=== PATIENT | female | born 1965 | race Hispanic/Latino ===

== ENCOUNTER → 2018-03-22 10:38 | Outpatient (CLI) | payer MEDICAID, SELFPAY ==
--- NOTE | 2018-03-22 10:43 | BI_ITS ---
MAMMOGRAPHY - BILATERAL SCREENING REASON FOR EXAM: Female, 52 years old. Routine annual screening examination. PERTINENT HISTORY: Non-contributory. TECHNIQUE: Digital bilateral breast james (3D mammographic acquisition) in the CC and MLO projections. 2-D mediolateral oblique (MLO) and craniocaudad (CC) views of both breasts were obtained. CAD: Full Field Digital Mammography with Computer Added Detection was performed. COMPARISON: Comparison is made with prior study dated September 16, 2016. FINDINGS: Breast Composition: The breasts are heterogeneously dense, which may obscure small masses. There are no dominant masses or suspicious calcifications. Stable calcification in the superior retroareolar region of the right breast. No other significant abnormalities are identified. There has been no significant change since the prior study. BI/SCREENING MAMM (CAD), BILAT IMPRESSION: Stable bilateral screening mammogram. Yearly follow-up mammogram recommended. (A) ASSESSMENT CATEGORY: BIRADS Category 2: Benign. A letter regarding these results will be sent to the patient by the facility within 30 days. Approximately 10% of breast cancers are not detected by mammography. A normal mammogram should not delay biopsy of a clinically suspicious abnormality. [id number] Electronically Signed: Tony Wray MD at 13:15 EST Tel [phone], Service support ,
== END ==
PROVIDERS: PCP Nurse Practitioner Family
DX: Z12.31 Encounter for screening mammogram for malignant neoplasm of breast (principal)
CPT/HCPCS: 77063; 77067

== ENCOUNTER → 2020-10-29 09:02 | Outpatient (CLI) | payer MEDICAID, SELFPAY ==
--- NOTE | 2020-10-29 | IMM_PTH ---
PATIENT: MALIKA SANTANA LOC: [facility]#:[id number] AGE/SX: 59/F ROOM: RE10/29/[address]: Dr. Raza Glaser MD : 1965 BED: DIS: SPEC #: [id number] RECD: 10/30/20 12:50 STATUS: TARIK REQ #: [id number] JUAN: 10/29/20 00:[address]: Raza Glaser DEPT: IMMUNOHISTOCHEMISTRY RECD BY: Jen Perez Tissues: PARACENTESIS FLUID Procedures: RCC (add) NAPSIN A (add) CA-125 (add) Ziggy Ret (add) CEA (add) CK20 (add) CK5-6 (add) CK7 (add) CK8 (add) DERAS-2 (add) HEP PAR (add) HER2 DC (add) MACRO (add) MAMM (add) NV (add) TTF1 (add) Vimentin (add) Pankeratin (add) GATA3 (add) P40 (add) CDX2 (add) ER (initial) PHYSICIAN & [address] [address] SPECIMEN INFORMATION: Tissue Source: Left paracentesis Clinical Info: Ascites Specimen Number: [id number] CPT code: 85693, 09767 x21 METHODOLOGY: Deparaffinized sections of prefer/formalin-fixed tissue or PAP/DQ stained slides are incubated with monoclonal/polyclonal antibodies/oligonucleotide probes. Localization is made via biotin free immunoperoxidase method. Appropriate controls are performed and reacted as expected. Results on target cell population are indicated in the following table: RESULTS: ANTIBODY / CLONE RESULT ER (6F11) negative NV (1E2) negative Her-2neu (CB11) negative Mammaglobin (31A5) negative GATA3 (L50-823) negative AE1-3 (AE1/AE3/PCK26) positive CK7 (OV-TL12/30) positive CK8 (85dbdyM09) positive CK20 (KS20.8) negative DERAS-2 (SP21) positive CDX2 (BJT5128F) negative Vimentin (V9) negative Macro (HAM-56) negative TTF-1 (8G7G3/1) negative Napsin A (Rabbit Polyclonal) negative HepPar (OCh1E5) negative RCC (PN-15) negative CALRET (polyclonal) negative CK5-6 (D5 & 1684) negative P40 (BC28) negative CEA (11-7/TF-3HB-1) negative CA125 (OC125) positive These tests were developed and their performance characteristics determined by [facility]. They may not have been cleared or approved by the U.S. Food and Drug Administration. The FDA has determined that such clearance or approval is not necessary. The above immunohistochemical/dualISH markers are ordered and reviewed by the Pathologist. INTERPRETATION: Left paracentesis: Malignant cells present derived from non-small cell carcinoma, favor adenocarcinoma. See comment. SJ:ori 10/31/2020 Comment: IHC profile favors ovarian primary. Clinical correlation is necessary. Case has been reviewed in consultation with Dr. Orourke who concurs with the above diagnosis. IDC:AM
--- NOTE | 2020-10-29 | FLU_PTH ---
PATIENT: MALIKA SANTANA LOC: [facility]#:[id number] AGE/SX: 59/F ROOM: RE10/29/[address]: Dr. Raza Glaser MD : 1965 BED: DIS: SPEC #: [id number] RECD: 10/29/20 10:29 STATUS: TARIK DUNN #: [id number] JUAN: 10/29/20 00:[address]: Raza Glaser DEPT: CYTOLOGY RECD BY: Omaira Holland Tissues: PARACENTESIS FLUID Procedures: Special Stain Group II Mucicarmine Stain (control) Surgery Specimen Level IV Cytospin Fluid HEADER OPERATION: Ultrasound-guided left paracentesis PRE-OP DIAGNOSIS: Ascites TISSUE SUBMITTED: Left paracentesis fluid for cytology DIAGNOSIS CYTOLOGY Left paracentesis fluid for cytology (cytospin and cell block): Malignant cells present derived from non-small cell carcinoma, favors adenocarcinoma. See comment. OLESYA:ori 10/30/2020 COMMENT Immunohistochemistry ([id number]) supports the above diagnosis. IHC profile favors ovarian primary. Mucin stain with matched control is used in the evaluation of the specimen and the tumor cells are negative for mucin. Clinical correlation and appropriate follow up are necessary. Results are reported to Dr. Glaser?s office on 10/31/20. Case has been reviewed in consultation with Dr. Orourke who concurs with the above diagnosis. IDC:AM CYTOLOGY STUDY Slides are reviewed. CYTOLOGY GROSS Received is 90 ml of yellow cloudy fluid labeled with the patient's name and and designated per the requisition as paracentesis. Submitted for cytology preparation including cell block. / ori 10/29/2020 TC:0 CPT: 95790, 17733, 97850
--- NOTE | 2020-10-29 09:05 | US_ITS ---
PROCEDURE: Ultrasound guided paracentesis. DATE OF EXAMINATION: 10/29/2020.. INDICATION: Female, 55 years old. Ascites. PHYSICIAN: Tony Wray M.D. TECHNIQUE: The risks, benefits, and alternatives to the procedure were explained to the patient. The specific risks of bleeding, infection, and damage to bowel were detailed and accepted. Witnessed informed consent was obtained. The abdomen was ultrasonographically surveyed. An appropriate pocket of fluid was identified at the right lower quadrant. The skin were cleaned and prepped in the usual sterile fashion. Using ultrasound guidance, the peritoneal cavity was accessed with a 5-Urdu paracentesis needle/catheter system. The trocar was removed. A total of 5900 ml of josh-colored fluid were removed from the peritoneal cavity. The catheter was removed and a sterile dressing was applied. A 100 mL sample of fluid was sent to the laboratory for testing. The procedure was well tolerated. US/Paracentesis with US IMPRESSION: Ultrasound guided paracentesis. Electronically Signed: Tony Wray MD at 10:47 EDT , Service support ,
[2020-10-29 09:11] VITALS: BMI 18.8
[2020-10-29 10:00] VITALS: BP 106/55; BP 110/82; BP 113/72; PULSE 100; PULSE 107; PULSE 98; RESP 16; TEMP 36.6; O2SAT 97; O2SAT 99
== END | disposition home or self-care (01) ==
PROVIDERS: PCP Family Medicine; Referring Provider Family Medicine; Visit Provider Family Medicine
DX: R18.0 Malignant ascites (principal); C76.3 Malignant neoplasm of pelvis
CPT/HCPCS: 49083; 88108; 88305; 88313; 88341; 88342

== ENCOUNTER → 2020-11-12 12:08 | Outpatient (CLI) | payer MEDICAID, SELFPAY ==
[2020-10-29 09:11] VITALS: BMI 18.8
--- NOTE | 2020-11-12 12:10 | US_ITS ---
PROCEDURE: ULTRASOUND GUIDED PARACENTESIS CLINICAL HISTORY: Female, 55 years old. ASCITES CONSENT: Time-Out Called: Yes. Consent form signed: Yes. PT-PTT Levels Checked: Yes. SEDATION: Local injection of 3 cc of 1% LIDOCAINE TECHNIQUE: Procedure explained to the patient. FINDINGS: FLUID PRE-PROCEDURE There is posterior enhancement. The findings appear anechoic. There is no loculation. A large amount of fluid is noted in the abdominal cavity. FLUID POST-PROCEDURE Amount of fluid drained: 4150 ml. Residual image volume: 1000 ml. US/Paracentesis with US IMPRESSION: 4150 cc of clear yellow fluid was aspirated during this therapeutic paracentesis. Electronically Signed: Triston Hardwick DO at 15:21 EDT Tel , Service support ,
[2020-11-12 12:31] VITALS: BP 107/65; BP 107/68; BP 115/80; PULSE 92; PULSE 94; RESP 20; RESP 22; O2SAT 96; O2SAT 97
--- NOTE | 2020-11-21 20:09 | CASEMGMT ---
RN Care Coordination Assessment: ? The following information was gathered via medical record review of [facility] medical records and records received from Dr Glaser's office (PCP), Dr Sotelo (oncology), and Dr Luz Ashby (genecology). Pt is a 55 yr-old female.? Preferred language is Amharic.? Limited Faroese-speaking.? No history of? ETOH or drug use and no history of smoking.?? 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 DM, Type 2, GERD, dyslipidemia.? U/S Guided Paracentesis:? Managed/Ordered by: Dr Glaser.? Current order is for Paracentesis every 1-2 weeks.?? 1st Paracentesis done 10/29/2020 w/5,900 ml removed.?? 2nd?Paracentesis:??11/12/2020 w/4,150 ml removed: Providers: Dr Raza Glaser, PCP.? Per Dr Glaser office visit note 11/12/20, pt declining chemo and he recommended Palliative Care for pain/symptom management.??Pt to return for f/u in [address] Sotelo-oncology. Pt last met w/Dr Sotelo 09/17/20. Treatment options, risks/benefits discussed. Pt did not return for f/u appts. Dr Ramírez--Gynecology @ [facility] and Dr Luz Ashby (genecology) ? Insurance:? [employer] Prescription Benefit:? Yes Medications:?? Prednisone 20 mg, Glucophage 500 mg, Atorvastatin 10 mg, Senna-S, Miralax, and Devol. Pt was taking Gabapentin for pain, but after getting paracentesis, the symptoms improved and pt stopped taking it.? Allergies: NKA -RN JASON to meet w/patient and family, if available, when pt comes in for next paracentesis to?assist with any care coordination needs.?? ? DGiauque?BSN BONNIE GOMEZ
== END | disposition home or self-care (01) ==
PROVIDERS: PCP Family Medicine; Referring Provider Family Medicine; Visit Provider Family Medicine
DX: R18.0 Malignant ascites (principal)
CPT/HCPCS: 49083

== ENCOUNTER → 2020-11-26 12:19 | Outpatient (CLI) | payer MEDICAID, SELFPAY ==
[2020-10-29 09:11] VITALS: BMI 18.8
--- NOTE | 2020-11-26 12:21 | US_ITS ---
PROCEDURE: Ultrasound guided paracentesis. DATE OF EXAMINATION: 11/26/2020. INDICATION: Female, 55 years old. Ascites. PHYSICIAN: Tony Wray M.D. TECHNIQUE: The risks, benefits, and alternatives to the procedure were explained to the patient. The specific risks of bleeding, infection, and damage to bowel were detailed and accepted. Witnessed informed consent was obtained. The abdomen was ultrasonographically surveyed. An appropriate pocket of fluid was identified at the right lower quadrant. The skin were cleaned and prepped in the usual sterile fashion. Using ultrasound guidance, the peritoneal cavity was accessed with a 5-Moldovan paracentesis needle/catheter system. The trocar was removed. A total of 4800 ml of josh-colored fluid were removed from the peritoneal cavity. The catheter was removed and a sterile dressing was applied. The procedure was well tolerated. US/Paracentesis with US IMPRESSION: Ultrasound guided paracentesis. Electronically Signed: Tony Wray MD at 13:42 EDT , Service support ,
[2020-11-26 12:52] VITALS: BP 108/69; BP 108/72; BP 113/78; BP 115/77; PULSE 101; PULSE 104; PULSE 109; RESP 18; TEMP 36.6; O2SAT 96; O2SAT 97
[2020-11-26] MEDS: Lidocaine 1% (5 ml sdv) 5 ML Vial INFILT (13:00)
== END ==
PROVIDERS: PCP Family Medicine; Referring Provider Family Medicine; Visit Provider Family Medicine
DX: C76.3 Malignant neoplasm of pelvis (principal); R18.0 Malignant ascites
CPT/HCPCS: 49083

== ENCOUNTER → 2020-12-06 13:30 | Outpatient (CLI) | payer MEDICAID, SELFPAY ==
--- NOTE | 2020-12-06 13:31 | US_ITS ---
STUDY: ABDOMINAL ULTRASOUND - ascites survey. REASON FOR VISIT: Female, 55 years old ASCITES,CIRRHOSIS TECHNIQUE: Ultrasound evaluation of the 4 quadrants was performed with real-time and static cunningham-scale imaging. TECHNICAL QUALITY: Adequate. COMPARISON: None. FINDINGS: The 4 quadrants was assessed for ascites. A small pocket of free fluid is seen in the right lower quadrant. Not enough fluid for paracentesis. US/Abdomen Limited IMPRESSION: Small pocket of ascites seen in the right lower quadrant. Not enough for safe paracentesis. Electronically Signed: Tony Wray MD at 15:01 EDT , Service support ,
== END ==
PROVIDERS: PCP Family Medicine; Referring Provider Family Medicine; Visit Provider Family Medicine
DX: R18.0 Malignant ascites (principal); C76.3 Malignant neoplasm of pelvis
CPT/HCPCS: 76705

== ENCOUNTER 2020-12-11 15:07 | Inpatient (IN) | payer MEDICAID, SELFPAY ==
[2020-12-11] VITALS (7 sets, daily range): BP systolic 98–139; BP diastolic 62–77; PULSE 68–108; RESP 16–20; TEMP 36.4–36.7; O2SAT 90–98; BMI 17.4; BMI 18.2
--- NOTE | 2020-12-11 15:41 | CT_ITS ---
STUDY: CTA CHEST REASON FOR EXAM: Female, 55 years old. SOB, hx of DVT RADIATION DOSAGE (If Supplied By Facility): CTDIvol = ( 3.32 ) mGy, DLP = ( 107.20 ) mGycm TECHNIQUE: The examination was performed with the intravenous administration of IV 75mL Isovue-370. Post-processing of the angiographic images was performed, with multiplanar reformation and 3D reconstruction. Individualized dose optimization techniques were used for this CT. COMPARISON: None. FINDINGS: A markedly decrease in subcutaneous fat suggestive of cachexia. Edema of subcutaneous fat suggestive of anasarca. Normal enhancement of the main pulmonary artery and right and left pulmonary arteries. Normal enhancement of the bilateral peripheral pulmonary arteries. There is a filling defect within the right descending pulmonary artery consistent with pulmonary embolism. Normal thoracic aorta and visualized great vessels. There is no demonstrated aortic dissection. Normal heart and pericardium. Normal mediastinum. Normal hilar regions. Normal visualized trachea and bronchi. The lungs are well expanded. Normal pulmonary parenchyma. Very large bilateral pleural effusions with bibasilar atelectasis. Normal chest wall structures. Normal osseous structures. Moderate amount of ascites. CT/CTA Chest W/WO Contrast IMPRESSION: 1. Positive for pulmonary embolism within the right ascending pulmonary artery. 2. Very large bilateral pleural effusions with bibasilar atelectasis. 3. Anasarca. 4. Cachexia. Electronically Signed: Jayy Escobar MD at 17:03 EDT Tel , Service support ,
[2020-12-11 16:00] LABS: Absolute Lymphocyte Count 0.84 X10^3/uL (0.83-4.51); Absolute Neutrophil Count 7.3 X10^3/uL (2.0-7.7); Basophil# 0.05 X10^3/uL; Basophil% 0.6 % (0-1); Eosinophil# 0.04 X10^3/uL; Eosinophils% 0.5 % (0-5); Hematocrit 40.8 % (37-47); Hemoglobin 12.9 g/dL (12.0-15.0); Lymphocyte # 0.84 X10^3/ul (0.83-4.51); Lymphocyte % 9.7 % (19-41); Mean Corp Hgb Conc 31.6 g/dL (32-36); Mean Corpuscular Hgb 28.2 pg (27.0-32.0); Mean Corpuscular Volume 89.1 fL (81-99); Mean Platelet Vol. 9.6 fl (6.2-12.0); Monocyte# 0.38 X10^3/uL; Monocyte% 4.4 % (0-10); NRBC Flagged by Analyzer 0 % (0-5); Neutrophil # 7.27 X10^3/uL (2.7-7.7); Platelet Count 481 K/mm3 (150-450); RBC Distribution Width CV 17.8 % (11.6-14.6); RBC Distribution Width SD 56.9 fl (35.1-43.9); Red Blood Count 4.58 M/mm3 (4.2-5.4); White Blood Count 8.7 K/mm3 (4.4-11.0)
--- NOTE | 2020-12-11 16:05 | ED.VIS.DYS ---
HPI History of Present Illness Chief Complaint: Shortness of Breath Informant: patient and spouse/S.O. Narrative Narrative: Patient is a 55-year-old female with a past medical history of uterine cancer who presents to the emergency department for shortness of breath. Patient is Marshallese-speaking and the does the translating. She was diagnosed with stage IV uterine cancer that was an operable in July. She does have chronic abdominal ascites requiring drainage from the cancer. They have elected not to undergo any chemotherapy. She does have chronic abdominal swelling and pain that is at baseline. She denies any chest pain. For the past 3 or 4 nights she has developed shortness of breath when lying flat. She feels a gurgling sensation in her throat. She was recently diagnosed with a DVT in her left lower extremity and started on Eliquis. She has had swelling of the left lower extremity without any significant pain. She is also swelling of her left upper extremity with a negative ultrasound of that arm. At this time she is relatively asymptomatic with the shortness of breath. No associated chest pain. She has occasionally coughed and brought up a clear bubbly sputum. [facility] Medical History (Updated 12/11/20 @ 17:[address] Drew Navas DO) Cervical cancer Home Medications apixaban [Eliquis DVT-PE Treat 30D Start] 10 mg PO BID 12/11/20 [History Last Taken 12/11/20] hydrocodone-acetaminophen 1 tab PO Q8H PRN PRN 12/11/20 [History Last Taken 12/11/20] nystatin 5 ml PO 4X/DAY 12/11/20 [History Last Taken 12/11/20] sennosides-docusate sodium [P-COL RITE] 2 tab PO DAILY 12/11/20 [History Last Taken 12/11/20] Allergy/AdvReac Type Severity Reaction Status Date / Time No Known Allergies Allergy Verified 12/11/20 15:08 Social History Smoking Status: Never smoker ROS ROS ED Constitutional Constitutional ED: Denies chills or fever(s) Eyes Eyes: Denies change in vision ENT ENT ED: Denies epistaxis or rhinorrhea Cardiovascular Cardiovascular: Denies chest pain or palpitations Respiratory/Chest Respiratory/Chest: Reports cough, dyspnea and sputum Gastrointestinal Gastrointestinal: Reports abdominal pain; Denies diarrhea, nausea or vomiting Genitourinary Genitourinary ED: Denies dysuria, hematuria or urinary frequency Musculoskeletal Musculoskeletal: Denies back pain or neck pain Integumentary Denies rash Neurologic Neurologic: Denies dizziness, headache(s) or weakness EXAM Physical Exam Const Vital Signs: 12/11/20 15:09 12/11/20 15:12 12/11/20 16:02 Temperature 97.8 F 97.8 F Temperature Source Temporal Temporal Pulse Rate 107 H 107 H Respiratory Rate 16 16 Respiratory Effort Short of Breath Respiratory Depth Normal Respiratory Pattern Normal Blood Pressure 103/76 103/76 Blood Pressure Mean 85 85 Pulse Ox 97 97 Oxygen Delivery Method Room Air Room Air 12/11/20 17:18 Temperature Temperature Source Pulse Rate 68 Respiratory Rate 17 Respiratory Effort Respiratory Depth Respiratory Pattern Blood Pressure 139/77 H Blood Pressure Mean 97 Pulse Ox 98 Oxygen Delivery Method Room Air Positive well nourished and well developed General Appearance ED: well developed and NAD HEENT Reports normocephalic, head/scalp atraumatic and moist mucous membranes Eyes PERRL and EOMs intact bilaterally Neck supple Chest Wall inspection of chest normal Resp normal respiratory effort and clear to auscultation bilaterally Auscultation: Negative for rales, rhonchi or wheezes Cardio regular rhythm and no murmurs Rate: tachycardic GI GI Narrative: Abdominal distention with ascites. Diffuse abdominal discomfort with palpation. No rebound or guarding. Normal active bowel sounds. Back/Spine no CVA tenderness Extremity Extremity Narrative: Mild swelling to left arm and left leg. No significant tenderness. Neuro Sensorium / Orientation: alert Motor Exam: strength 5/5 throughout Psych mental status grossly normal Skin no rashes or lesions noted MDM MDM MDM Narrative Medical decision making narrative: Patient presents to the ED for shortness of breath when lying flat at nighttime over the past few days. They were concerned because she was recently diagnosed with a DVT. On arrival to the ED she is satting 97% on room air. She is mildly tachycardic with a pulse of 107. She otherwise has benign physical exam except for abdominal ascites. Will check basic lab work and CT scan of the chest. Patient's lab work-up did not reveal significant acute abnormality. Her troponin and BNP are not high. Her CT scan unfortunately did show a pulmonary embolism. There is also large bilateral pleural effusions with pulmonary atelectasis. Given that she is symptomatic, tachycardic will bring her into the hospital for potential thoracentesis. She will likely need palliative care consult. All these findings were discussed with the patient and the family. Lab Data Labs: Laboratory Results - last 24 hr 12/11/20 12/11/20 12/11/20 15:55 15:55 15:55 WBC 8.7 RBC 4.58 Hgb 12.9 Hct 40.8 MCV 89.1 MCH 28.2 MCHC 31.6 L RDW Std Deviation 56.9 H RDW Coeff of Brittani 17.8 H Plt Count 481 H MPV 9.6 Immature Gran % (Auto) 0.800 Neut % (Auto) 84.0 H Lymph % (Auto) 9.7 L Hardeman % (Auto) 4.4 Eos % (Auto) 0.5 Baso % (Auto) 0.6 Absolute Neuts (auto) 7.3 Absolute Lymphs (auto) 0.84 Nucleated RBC % 0 Sodium 136 Potassium 3.6 Chloride 103 Carbon Dioxide 26.0 Anion Gap 7 BUN 27 H Creatinine 0.52 L Estim Creat Clear Calc 75.28 Est GFR (MDRD) Af Amer 156 Est GFR (MDRD) Non-Af 129 BUN/Creatinine Ratio 51.5 H Glucose 131 H Calcium 8.4 L Total Bilirubin 0.20 AST 32 ALT 21 Alkaline Phosphatase 135 H Troponin I High Sens 8 B-Natriuretic Peptide 22.3 Total Protein 6.3 L Albumin 1.8 L Globulin 4.5 H Albumin/Globulin Ratio 0.4 L Radiography Diagnostic Testing: Radiology Impression Chest CTA 12/11/20 15:41 IMPRESSION: 1. Positive for pulmonary embolism within the right ascending pulmonary artery. 2. Very large bilateral pleural effusions with bibasilar atelectasis. 3. Anasarca. 4. Cachexia. Electronically Signed: Jayy Escobar MD at 17:03 EDT Tel , Service support , Discharge Plan Dx/Rx/DC Orders Clinical Impression: Pulmonary embolism, Bilateral pleural effusion Disposition Disposition: Acute Care [facility]
[2020-12-11 16:15] LABS: BNP,B-Type NATRIURETIC PEPTIDE 22.3 pg/mL (0-100)
[2020-12-11 16:19] LABS: ALB/GLOB Ratio 0.4 RATIO (0.9-2.4); AST(SGOT) 32 U/L (15-37); Alanine Aminotransfer ALT/SGPT 21 U/L (13-56); Albumin, Serum 1.8 g/dL (3.2-5.0); Alkaline Phosphatase 135 U/L (45-117); Anion Gap 7 (5-15); BUN 27 mg/dL (7-18); BUN/Creat Ratio 51.5 RATIO (10-20); Calcium,Total 8.4 mg/dL (8.5-10.1); Chloride 103 mmol/L (98-107); Creatinine, Serum 0.52 mg/dL (0.55-1.02); EST Glomerular Filtration Rate 129 mL/min (>60); Est Glom Filt Rate - Afr Amer 156 mL/min (>60); Estimated Creatinine Clearance 75.28 ml/min; Globulin 4.5 g/dL (2.2-4.2); Glucose 131 mg/dL (74-106); Potassium 3.6 mmol/L (3.5-5.1); Protein, Total 6.3 g/dL (6.4-8.2); Sodium Level 136 mmol/L (136-145); Troponin-I HS 8 pg/mL (3.0-54.0)
--- NOTE | 2020-12-11 18:24 | HP.PCM_ITS ---
Documented by User: TAMMY Hampton 12/11/20 18:41 HPI - General General Date of Admission: 12/11/20 Date of Service: 12/11/20 Chief Complaint: Shortness of breath HPI Narrative MALIKA TAN, is a 55 F who presents with complaints of shortness of breath and gurgling in her lungs over the past week. Patient does not speak Guamanian fluently, at bedside translating. Patient reports that patient was started on Eliquis on 12/07/2020 for DVT in left leg. Patient's states that they did not do any x-ray or CAT scan of the chest at that time. reports patient was also diagnosed with uterine cancer with metastases, not receiving chemo or radiation. states patient is being seen by palliative care who is managing her pain. Patient denies fever, chills, chest pain, nausea, vomiting. Patient reports 7 out of 10 abdominal pain which is chronic for patient secondary to uterine cancer. [facility] Medical History (Updated 12/11/20 @ 18:58 by Adelaide Varela) Cervical cancer DVT (deep venous thrombosis) Home Medications apixaban [Eliquis DVT-PE Treat 30D Start] 10 mg PO BID 12/11/20 [History Last Taken 12/11/20] hydrocodone-acetaminophen 1 tab PO Q8H PRN PRN 12/11/20 [History Last Taken 12/11/20] nystatin 5 ml PO 4X/DAY 12/11/20 [History Last Taken 12/11/20] sennosides-docusate sodium [P-COL RITE] 2 tab PO DAILY 12/11/20 [History Last Taken 12/11/20] Allergy/AdvReac Type Severity Reaction Status Date / Time No Known Allergies Allergy Verified 12/11/20 15:08 Family History (Updated 12/11/20 @ 18:27 by TAMMY Hampton) Father Diabetes Mother Diabetes Surgical History (Updated 12/11/20 @ 18:27 by TAMMY Hampton) History of 2 sections Social History (Updated 12/11/20 @ 18:59 by Adelaide Varela) household members: significant other housing: house Smoking Status: Never smoker ROS Constitutional Constitutional: Denies anorexia, chills, fatigue, fever(s) or weakness Cardiovascular Cardiovascular: Reports edema and tachypnea; Denies chest pain Respiratory/Chest Respiratory/Chest: Reports cough, tachypnea and other Details: Inability to lie flat due to shortness of breath Gastrointestinal Gastrointestinal: Reports abdominal pain Genitourinary Genitourinary: Denies dysuria Musculoskeletal Musculoskeletal: Denies back pain, extremity pain, joint pain or joint stiffness Integumentary Integumentary: Denies dry skin Neurologic Neurologic: Denies abnormal gait, abnormal speech, confusion or dizziness Psychiatric Psychiatric: Denies anxiety or depression Endocrine Endocrinology: Denies change in body appearance Hematologic/Lymphatic Hematologic/Lymphatic: Denies easy bleeding or easy bruising Vital Signs Vital Signs Vital Signs: 12/11/20 15:09 12/11/20 15:12 12/11/20 16:02 Temperature 97.8 F 97.8 F Temperature Source Temporal Temporal Pulse Rate 107 H 107 H Respiratory Rate 16 16 Respiratory Effort Short of Breath Respiratory Depth Normal Respiratory Pattern Normal Blood Pressure 103/76 103/76 Blood Pressure Mean 85 85 Pulse Ox 97 97 Oxygen Delivery Method Room Air Room Air Oxygen Flow Rate (L/min) 12/11/20 17:18 12/11/20 18:23 Temperature 98.1 F Temperature Source Temporal Pulse Rate 68 99 Respiratory Rate 17 20 H Respiratory Effort Respiratory Depth Respiratory Pattern Blood Pressure 139/77 H 112/67 Blood Pressure Mean 97 82 Pulse Ox 98 93 Oxygen Delivery Method Room Air Nasal Cannula Oxygen Flow Rate (L/min) 3 Weight Weight: 86 lb Body Mass Index (BMI) 17.4 Physical Exam Const alert, oriented x3 and no apparent distress General Appearance: cooperative HEENT normocephalic and head/scalp atraumatic Eyes conjunctivae normal and no scleral icterus Neck supple and no JVD General: trachea midline Resp normal respiratory effort Effort and Inspection: tachypneic Auscultation: rhonchi throughout Cardio regular rate, regular rhythm, S1 normal heart sound, S2 normal heart sound and peripheral pulses 2+ throughout GI normal to inspection, nondistended, normoactive bowel sounds, soft to palpation and non-tender Extremity normal capillary refill and no clubbing, cyanosis or edema General Extremity: no tenderness to palpation of joints or extremities Skin General Skin Exam: no breakdown and turgor normal Lesions: no lesions Rashes: no rashes Neuro no focal motor deficits and no sensory deficits noted Speech: speech normal Motor Exam: Negative for general weakness Psych thought process normal, cooperative and affect normal Appearance: appropriate Results Lab / Micro Data Result Diagrams: 12/12/20 02:00 12/12/20 02:00 Labs: Laboratory Results - last 24 hr 12/11/20 15:55: WBC 8.7, RBC 4.58, Hgb 12.9, Hct 40.8, MCV 89.1, MCH 28.2, MCHC 31.6 L, RDW Std Deviation 56.9 H, RDW Coeff of Brittani 17.8 H, Plt Count 481 H, MPV 9.6, Immature Gran % (Auto) 0.800, Neut % (Auto) 84.0 H, Lymph % (Auto) 9.7 L, Boone % (Auto) 4.4, Eos % (Auto) 0.5, Baso % (Auto) 0.6, Absolute Neuts (auto) 7.3, Absolute Lymphs (auto) 0.84, Nucleated RBC % 0 12/11/20 15:55: Sodium 136, Potassium 3.6, Chloride 103, Carbon Dioxide 26.0, Anion Gap 7, BUN 27 H, Creatinine 0.52 L, Estim Creat Clear Calc 75.28, Est GFR (MDRD) Af Amer 156, Est GFR (MDRD) Non-Af 129, BUN/Creatinine Ratio 51.5 H, Glucose 131 H, Calcium 8.4 L, Total Bilirubin 0.20, AST 32, ALT 21, Alkaline Phosphatase 135 H, Troponin I High Sens 8, Total Protein 6.3 L, Albumin 1.8 L, Globulin 4.5 H, Albumin/Globulin Ratio 0.4 L 12/11/20 15:55: B-Natriuretic Peptide 22.3 Radiology Impression Chest CTA 12/11/20 15:41 IMPRESSION: 1. Positive for pulmonary embolism within the right ascending pulmonary artery. 2. Very large bilateral pleural effusions with bibasilar atelectasis. 3. Anasarca. 4. Cachexia. Electronically Signed: Jayy Escobar MD at 17:03 EDT Tel , Service support , Assessment & Plan Assessment/Plan (1) Pulmonary embolism: QUALIFIERS: Acute cor pulmonale presence: unspecified Chronicity: unspecified Pulmonary embolism type: other Qualified Code(s): I26.99 - Other pulmonary embolism without acute cor pulmonale (2) Bilateral pleural effusion: PLAN: 1. Pulmonary embolism -Admit patient to PCU for cardiac monitoring -Heparin drip initiated due to anticipated thoracentesis, PTT per protocol -Consult meter maintenance person -PT and OT to eval and treat -CBC and CMP daily -Encourage incentive spirometry -Oxygen per protocol -Consult case management for discharge planning and coordination with palliative care 2. Bilateral pleural effusion -May be secondary to pulmonary embolism however patient also has active diagnosis of cervical cancer for which she is not undergoing treatment currently. -IV Lasix ordered daily -Thoracentesis with ultrasound ordered -Daily weights -Intake and output 3. DVT -Patient diagnosed on 12/07/2020 and started on Eliquis, will hold Eliquis and initiate heparin drip for pending thoracentesis for pleural effusions -Elevate left lower extremity -We will obtain records from [facility] 4. Cervical cancer -Patient currently not undergoing any chemo or radiation treatment per choice. -Will continue home Paicines regimen along with as needed Tylenol -We will obtain records from [facility] DVT prophylaxis-SCDs This patient was seen by [facility] under the supervision of Dr. Bueno. Documented by User: Dr. Adilene Bueno MD 12/12/20 07:37 HPI - General General Date of Admission: 12/11/20 [facility] Medical History (Updated 12/11/20 @ 18:58 by Adelaide Varela) Cervical cancer DVT (deep venous thrombosis) Home Medications apixaban [Eliquis DVT-PE Treat 30D Start] 10 mg PO BID 12/11/20 [History Last Taken 12/11/20] hydrocodone-acetaminophen 1 tab PO Q8H PRN PRN 12/11/20 [History Last Taken 12/11/20] nystatin 5 ml PO 4X/DAY 12/11/20 [History Last Taken 12/11/20] sennosides-docusate sodium [P-COL RITE] 2 tab PO DAILY 12/11/20 [History Last Taken 12/11/20] Allergy/AdvReac Type Severity Reaction Status Date / Time No Known Allergies Allergy Verified 12/11/20 15:08 Family History (Updated 12/11/20 @ 18:27 by TAMMY Hampton) Father Diabetes Mother Diabetes Surgical History (Updated 12/11/20 @ 18:27 by TAMMY Hampton) History of 2 sections Social History (Updated 12/11/20 @ 18:59 by Adelaide Varela) household members: significant other housing: house Smoking Status: Never smoker Results Lab / Micro Data Result Diagrams: 12/12/20 02:00 12/12/20 02:00 Charges/Coding Addendum Addendum: This patient was seen in conjunction with Mony Bills. I have independently interviewed and examined the patient and reviewed pertinent historical, laboratory, and other data. I have reviewed her note and concur with her documentation 55-year-old female with stage IV cervical CA, not on chemotherapy or any treatment, not following oncology who comes in with progressive shortness of breath. Patient was recently started on Eliquis for DVT of the left leg. Patient has progressive shortness of breath. Vitals were stable. On 2 L of oxygen. CTA of the chest showed acute PE within the right ascending pulmonary artery, very large bilateral pleural effusions, anasarca Physical Exam: Gen: Looks in some discomfort, not pale, not jaundiced, cachectic CVS:HS I +II, regular, no murmurs RESP: Diminished at lung bases, crackles GI: BS present and normal, soft, nontender, no palpable organs EXT:No edema ASSESSMENT: 1. Hypoxia secondary to acute PE/pleural effusion 2. Bilateral massive pleural effusion 3. Acute PE/recent DVT 4. Stage IV metastatic cervical CA 5. Severe protein calorie malnutrition Plan: Heparin drip [employer] Worker consult IR consult for thoracocentesis Continue pain control I discussed and explained in details the various types of CODE STATUS-full code, DNR CCA, DNR CC. Patient chose full code. Patient and her do not want hospice at this time. They are doing other alternate medicines including strict dieting and some herbs. Reportedly, it is working according to them. Time spent discussing CODE STATUS 18 minutes Visit Charges Inpatient E&M: 93162 Init Hosp L3 Procedures Hospitalists Procedures: 26235 Advncd Care Plan 30 Min
[2020-12-11 20:14] LABS: International Normalized Ratio 1.4; Prothrombin Time (Protime)PT. 16.1 SECONDS (11.7-14.9)
[2020-12-11 20:15] LABS: Partial Thromboplast Time 36.4 Seconds (24.1-36.2)
[2020-12-11] MEDS: Heparin Injection (Vial) 5,000 UNIT/ML VIAL 3500 UNIT IV (20:16)
[2020-12-11] MEDS: NYSTATIN 500,000 UNIT/5 ML UDC 500000 UNIT PO (20:16)
[2020-12-11] MEDS: HEPARIN/D5w 25,000 UNITS 25,000 UNITS/250 ML IV.SOLN. 7 UNITS IV (20:16)
[2020-12-11] MEDS: HYDROcodone Bitartrate/Apap 5/325 Tablet PO (21:53)
[2020-12-12] VITALS (16 sets, daily range): BP systolic 90–111; BP diastolic 50–67; PULSE 89–109; RESP 14–20; TEMP 36.4–37.3; O2SAT 92–100
--- NOTE | 2020-12-12 | IMM_PTH ---
PATIENT: MALIKA SANTANA LOC: [facility] U#:[id number] AGE/SX: 55/F ROOM: [facility] RE12/11/[address]: Dr. Adilene Bueno MD : 1965 BED: 1 DIS: 12/13/2020 SPEC #: [id number] RECD: 12/14/20 14:10 STATUS: TARIK REQ #: [id number] JUAN: 12/12/20 00:[address]: Adilene Bueno DEPT: IMMUNOHISTOCHEMISTRY RECD BY: Jen Perez ENTERED: 12/14/20 14:13 SP TYPE: IMMUNO OTHR DR: MD Dr. Raza Tracy MD Tissues: THORACIC FLUID Procedures: RCC (add) NAPSIN A (add) BCL-2 (add) CA-125 (add) Ziggy Ret (add) CEA (add) CK19 (add) CK20 (add) CK7 (add) CK8 (add) HORACIO (add) P53 (add) AR (add) TTF1 (add) Vimentin (add) Pankeratin (add) P40 (add) ER (initial) S-100 (add) PHYSICIAN & INSTITUTION [place] [id number] SPECIMEN INFORMATION: Tissue Source: Thoracentesis fluid Clinical Info: Pleural effusion Specimen Number: [id number] CPT code: 80857, 91248 x18 METHODOLOGY: Deparaffinized sections of prefer/formalin-fixed tissue or PAP/DQ stained slides are incubated with monoclonal/polyclonal antibodies/oligonucleotide probes. Localization is made via biotin free immunoperoxidase method. Appropriate controls are performed and reacted as expected. Results on target cell population are indicated in the following table: RESULTS: ANTIBODY / CLONE RESULT ER (6F11) negative AR (1E2) negative AE1-3 (AE1/AE3/PCK26) positive CK7 (OV-TL12/30) positive CK8 (40duhqG23) positive CK20 (KS20.8) negative BCL-2 (bcl-2/100/D5) negative Vimentin (V9) positive S-100 (4C4.9) negative CK19 (A53-B/A2.26) positive TTF-1 (8G7G3/1) negative Napsin A (Rabbit Polyclonal) negative RCC (PN-15) negative CALRET (polyclonal) negative P40 (BC28) negative HROACIO (E29) positive CEA (11-7/TF-3HB-1) negative CA125 (OC125) positive P53 (DO-7) negative These tests were developed and their performance characteristics determined by [facility]. They may not have been cleared or approved by the U.S. Food and Drug Administration. The FDA has determined that such clearance or approval is not necessary. The above immunohistochemical/dualISH markers are ordered and reviewed by the Pathologist. INTERPRETATION: Thoracentesis fluid: Metastatic adenocarcinoma Comment: A uterine primary is favored AM:ramsey 12/18/2020
--- NOTE | 2020-12-12 | FLU_PTH ---
PATIENT: MALIKA SANTANA LOC: U U#:[id number] AGE/SX: 55/F ROOM: [facility] RE12/11/[address]: Dr. Adilene Bueno MD : 1965 BED: 1 DIS: 12/13/2020 SPEC #: [id number] RECD: 12/12/20 15:08 STATUS: TARIK DUNN #: [id number] JUAN: 12/12/20 00:[address]: Adilene Bueno DEPT: CYTOLOGY RECD BY: Espinoza Patino ENTERED: 12/13/20 09:48 SP TYPE: Fluid OTHR DR: MD Dr. Raza Tracy MD Tissues: THORACIC FLUID Procedures: Special Stain Group II Surgery Specimen Level IV Cytospin Fluid HEADER OPERATION: Ultrasound-guided thoracentesis PRE-OP DIAGNOSIS: Pleural effusion TISSUE SUBMITTED: Thoracentesis fluid for cytology DIAGNOSIS CYTOLOGY Thoracentesis fluid for cytology (cytospin and cell block): Metastatic non-small cell carcinoma. See comment. AM:ori 12/14/2020 COMMENT Immunohistochemistry ([id number]) supports the above diagnosis and favors an endometrial (uterine) primary. Case has been reviewed in consultation with Dr. Adler who concurs with the above diagnosis. IDC:SJ CYTOLOGY STUDY Slides are reviewed. CYTOLOGY GROSS Received is 96 ml of gold cloudy fluid labeled with the patient's name and and designated per the requisition as thoracentesis. Submitted for cytology preparation including cell block. / ori 12/13/2020 TC:0 CPT: 43602, 24851
[2020-12-12 02:17] LABS: Absolute Lymphocyte Count 0.87 X10^3/uL (0.83-4.51); Absolute Neutrophil Count 5.4 X10^3/uL (2.0-7.7); Basophil# 0.03 X10^3/uL; Basophil% 0.4 % (0-1); Eosinophil# 0.06 X10^3/uL; Eosinophils% 0.9 % (0-5); Hemoglobin 11.4 g/dL (12.0-15.0); Lymphocyte # 0.87 X10^3/ul (0.83-4.51); Lymphocyte % 12.6 % (19-41); Mean Corp Hgb Conc 31.7 g/dL (32-36); Mean Corpuscular Hgb 28.1 pg (27.0-32.0); Mean Corpuscular Volume 88.7 fL (81-99); Mean Platelet Vol. 9.4 fl (6.2-12.0); Monocyte# 0.46 X10^3/uL; Monocyte% 6.7 % (0-10); NRBC Flagged by Analyzer 0 % (0-5); Neutrophil # 5.43 X10^3/uL (2.7-7.7); Neutrophil % 78.8 % (47-70); Platelet Count 456 K/mm3 (150-450); RBC Distribution Width SD 57.4 fl (35.1-43.9); Red Blood Count 4.06 M/mm3 (4.2-5.4); White Blood Count 6.9 K/mm3 (4.4-11.0)
[2020-12-12 02:39] LABS: Partial Thromboplast Time 126.1 Seconds (24.1-36.2)
[2020-12-12 02:51] LABS: ALB/GLOB Ratio 0.4 RATIO (0.9-2.4); AST(SGOT) 25 U/L (15-37); Alanine Aminotransfer ALT/SGPT 18 U/L (13-56); Albumin, Serum 1.6 g/dL (3.2-5.0); Alkaline Phosphatase 118 U/L (45-117); Anion Gap 5 (5-15); BUN 24 mg/dL (7-18); BUN/Creat Ratio 62.2 RATIO (10-20); Calcium,Total 8.1 mg/dL (8.5-10.1); Chloride 106 mmol/L (98-107); Creatinine, Serum 0.39 mg/dL (0.55-1.02); EST Glomerular Filtration Rate 183 mL/min (>60); Est Glom Filt Rate - Afr Amer 222 mL/min (>60); Estimated Creatinine Clearance 105.49 ml/min; Globulin 4.2 g/dL (2.2-4.2); Glucose 122 mg/dL (74-106); Potassium 3.7 mmol/L (3.5-5.1); Protein, Total 5.8 g/dL (6.4-8.2); Sodium Level 136 mmol/L (136-145)
[2020-12-12] MEDS: HYDROcodone Bitartrate/Apap 5/325 Tablet PO ×2 (10:04→18:02)
[2020-12-12] MEDS: Furosemide 40 MG/4 ML Vial IV (10:05)
[2020-12-12] MEDS: NYSTATIN 500,000 UNIT/5 ML UDC 500000 UNIT PO ×4 (10:05→20:02)
[2020-12-12] MEDS: Senna/Docusate Sodium 1 Tablet 2 TABLET PO (10:05)
[2020-12-12] MEDS: 0.9% Saline Lock 10 ML Syringe IV ×2 (10:06→15:32)
--- NOTE | 2020-12-12 10:07 | CON.PCM.CC_ITS ---
Assessment & Plan Assessment/Plan (1) Bilateral pleural effusion: (2) DVT (deep venous thrombosis): (3) Pulmonary embolism: QUALIFIERS: Pulmonary embolism type: other Chronicity: unspecified Acute cor pulmonale presence: unspecified Qualified Code(s): I26.99 - Other pulmonary embolism without acute cor pulmonale PLAN: RECOMMENDATIONS: 1. Continue heparin drip pending clearance of Eliquis 2. Prepare for diagnostic and therapeutic thoracentesis 3. Complete paracentesis prior to thoracentesis. Labs likely not necessary on paracentesis 4. Walking oximetry prior to discharge 5. Palliative care consult IMPRESSIONS: 1. Acute respiratory insufficiency secondary to large bilateral effusions and PE Patient has multiple possible etiologies at this time. Patient is very malnourished with an albumin of 1.6 and possible liver mets from uterine cancer. This would produce a transudate pattern on testing. However, given stage IV uterine cancer without chemotherapy, malignant pleural effusion would be most likely. If it is found to be malignant, it is highly likely to recur. Patient appears to have some ascites on physical exam. This should likely be drained before having a thoracentesis as negative pressure in the thorax will likely translocate the fluid rapidly. Pleurx catheter would be a consideration if malignant, but given lack of chemotherapy this may accelerate patient's decline. Patient will need anticoagulation given PE/DVT, but it is unclear if a 10 a inhibitor will be sufficient as patient may require multiple interventions requiring cessation of anticoagulation. Lovenox may be a better option. 2. DVT/cervical cancer/severe protein malnutrition Complicates care, management, recovery and prognosis. Patient would benefit from a dietitian evaluation. Unclear if decreased albumin is secondary to malignancy versus decreased production from liver metastasis versus strict alternative diet as a substitute for chemotherapy. Overall prognosis is poor, but family reportedly has been very resistant to hospice measures in the past. HPI Consult Data Date of Consult: 12/12/20 HPI Narrative HPI Narrative: MALIKA TAN is a 55 F, with past medical history listed below, who presents to [facility] on 12/11/2020 secondary to progressive shortness of breath. Patient speaks [place] Zealander at baseline, so communication was somewhat limited. Patient reportedly had been diagnosed with stage IV uterine cancer that was inoperable in July. Patient reportedly has dominguez d issues with ascites in the past, but has not undergone any chemotherapy. Patient denies any new pains, but has been having suprapubic and left shoulder pain. Patient also states that the breathing is worse with lying flat. Patient had recently been diagnosed with a DVT in her lower extremity. Patient has reported a frothy clear sputum when expectorated. In the ER, patient was afebrile, but tachycardic at 107 bpm. Blood pressure was adequate at 103/76 and patient is saturating well on room air at rest. Laboratory data was relatively unremarkable except for a decreased albumin of 1.8 and a BNP of 22.3. A CTA of the chest was obtained showing a right pulmonary embolism and very large bilateral pleural effusions, left greater than right. Patient also has anasarca. Given patient's large pleural effusions and need for anticoagulation was admitted to the hospital for further evaluation. Since being admitted to the hospital, patient has remained relatively stable. Despite large pleural effusions, patient only reports some mild chest heaviness. Patient does not have any history of previous lung issues. It does not appear the patient has a history of a need for thoracentesis. Patient is not reporting any chest trauma. [facility] Medical History (Updated 12/11/20 @ 18:58 by Adelaide Varela) Cervical cancer DVT (deep venous thrombosis) Home Medications apixaban [Eliquis DVT-PE Treat 30D Start] 10 mg PO BID 12/11/20 [History Last Taken 12/11/20] hydrocodone-acetaminophen 1 tab PO Q8H PRN PRN 12/11/20 [History Last Taken 12/11/20] nystatin 5 ml PO 4X/DAY 12/11/20 [History Last Taken 12/11/20] sennosides-docusate sodium [P-COL RITE] 2 tab PO DAILY 12/11/20 [History Last Taken 12/11/20] Allergy/AdvReac Type Severity Reaction Status Date / Time No Known Allergies Allergy Verified 12/11/20 15:08 Family History (Updated 12/11/20 @ 18:27 by TAMMY Hampton) Father Diabetes Mother Diabetes Surgical History (Updated 12/11/20 @ 18:27 by TAMMY Hampton) History of 2 sections Social History (Updated 12/11/20 @ 18:59 by Adelaide Varela) household members: significant other housing: house Smoking Status: Never smoker ROS Review of Systems ROS Unobtainable: other Details: Language barrier Physical Exam Const alert, oriented x3 and no apparent distress General Appearance: cooperative HEENT normocephalic and head/scalp atraumatic Eyes conjunctivae normal and no scleral icterus Neck supple and no JVD General: trachea midline Resp normal respiratory effort Effort and Inspection: tachypneic Auscultation: diminished lung sounds Percussion: dullness Upper: left, Mid: bilateral and Lower: bilateral Cardio regular rate, regular rhythm, S1 normal heart sound, S2 normal heart sound and peripheral pulses 2+ throughout GI soft to palpation and non-tender Inspection: anasarca present Palpation: tender suprapubic and ascites; Negative for guarding or rigid Percussion: dullness to percussion and fluid wave Extremity normal capillary refill and no clubbing, cyanosis or edema General Extremity: no tenderness to palpation of joints or extremities Skin General Skin Exam: no breakdown and turgor normal Lesions: no lesions Rashes: no rashes Neuro no focal motor deficits and no sensory deficits noted Speech: speech normal Motor Exam: Negative for general weakness Psych thought process normal, cooperative and affect normal Appearance: appropriate Lab / Micro Data Result Diagrams: 12/12/20 02:00 12/12/20 02:00 Labs: Laboratory Results - last 24 hr 12/11/20 15:55: WBC 8.7, RBC 4.58, Hgb 12.9, Hct 40.8, MCV 89.1, MCH 28.2, MCHC 31.6 L, RDW Std Deviation 56.9 H, RDW Coeff of Birttani 17.8 H, Plt Count 481 H, MPV 9.6, Immature Gran % (Auto) 0.800, Neut % (Auto) 84.0 H, Lymph % (Auto) 9.7 L, Metcalfe % (Auto) 4.4, Eos % (Auto) 0.5, Baso % (Auto) 0.6, Absolute Neuts (auto) 7.3, Absolute Lymphs (auto) 0.84, Nucleated RBC % 0 12/11/20 15:55: Sodium 136, Potassium 3.6, Chloride 103, Carbon Dioxide 26.0, Anion Gap 7, BUN 27 H, Creatinine 0.52 L, Estim Creat Clear Calc 75.28, Est GFR (MDRD) Af Amer 156, Est GFR (MDRD) Non-Af 129, BUN/Creatinine Ratio 51.5 H, Glucose 131 H, Calcium 8.4 L, Total Bilirubin 0.20, AST 32, ALT 21, Alkaline Phosphatase 135 H, Troponin I High Sens 8, Total Protein 6.3 L, Albumin 1.8 L, Globulin 4.5 H, Albumin/Globulin Ratio 0.4 L 12/11/20 15:55: B-Natriuretic Peptide 22.3 12/11/20 19:50: PT 16.1 H, INR 1.4, APTT 36.4 H 12/12/20 02:00: WBC 6.9, RBC 4.06 L, Hgb 11.4 L, Hct 36.0 L, MCV 88.7, MCH 28.1, MCHC 31.7 L, RDW Std Deviation 57.4 H, RDW Coeff of Brittani 18.0 H, Plt Count 456 H, MPV 9.4, Immature Gran % (Auto) 0.600, Neut % (Auto) 78.8 H, Lymph % (Auto) 12.6 L, Metcalfe % (Auto) 6.7, Eos % (Auto) 0.9, Baso % (Auto) 0.4, Absolute Neuts (auto) 5.4, Absolute Lymphs (auto) 0.87, Nucleated RBC % 0 12/12/20 02:00: Sodium 136, Potassium 3.7, Chloride 106, Carbon Dioxide 25.0, Anion Gap 5, BUN 24 H, Creatinine 0.39 L, Estim Creat Clear Calc 105.49, Est GFR (MDRD) Af Amer 222, Est GFR (MDRD) Non-Af 183, BUN/Creatinine Ratio 62.2 H, Glucose 122 H, Calcium 8.1 L, Total Bilirubin 0.30, AST 25, ALT 18, Alkaline Phosphatase 118 H, Total Protein 5.8 L, Albumin 1.6 L, Globulin 4.2, Albumin/Globulin Ratio 0.4 L 12/12/20 02:00: APTT 126.1 H* Micro: Microbiology 12/11/20 18:35 Nasal Secretion SARS-CoV-2 Antigen (Rapid) - Final Radiology Impression Chest CTA 12/11/20 15:41 IMPRESSION: 1. Positive for pulmonary embolism within the right ascending pulmonary artery. 2. Very large bilateral pleural effusions with bibasilar atelectasis. 3. Anasarca. 4. Cachexia. Electronically Signed: Jayy Escobar MD at 17:03 EDT Tel , Service support , Charges/Coding Visit Charges Inpatient E&M: 46491 Init Hosp L3
--- NOTE | 2020-12-12 10:35 | PCS.PANDOC ---
PANDEMIC DOCUMENTATION INITIATED: Date: 12/11/2020 Time: 1849
[2020-12-12 11:03] LABS: Partial Thromboplast Time 40.9 Seconds (24.1-36.2)
--- NOTE | 2020-12-12 11:16 | US_ITS ---
PROCEDURE: Ultrasound guided paracentesis. INDICATION: Female, 55 years old presenting with abdominal ascites. PHYSICIAN: Iman Thorpe MD INFORMED CONSENT: The risks, benefits, and alternatives to the procedure were explained to the patient. The specific risks of bleeding, infection, and damage to bowel were detailed and accepted. Witnessed informed consent was obtained. TECHNIQUES: The abdomen was ultrasonographically surveyed. An appropriate pocket of fluid was identified at the right lower quadrant. The skin was cleaned and prepped in the usual sterile fashion. Using ultrasound guidance, the peritoneal cavity was accessed with a 5-Turkish paracentesis needle/catheter system. The trocar was removed. A total of 1100 ml of ascitic fluid was removed from the peritoneal cavity. The catheter was removed and a sterile dressing was applied. The procedure was well tolerated. The patient did not receive albumin during the procedure. # of Images: 16 US/Paracentesis with US IMPRESSION: Ultrasound guided paracentesis. Electronically Signed: Bridger Thorpe MD at 17:03 EDT Tel , Service support ,
[2020-12-12 12:22] LABS: ALB/GLOB Ratio 0.4 RATIO (0.9-2.4); LDH 256 U/L (84-246); Protein, Total 5.7 g/dL (6.4-8.2)
--- NOTE | 2020-12-12 13:06 | PN.HOSP_ITS ---
Documented by User: Mony Bills NP, HABILITATIVE INTERVENTIONIST-C 12/12/20 13:14 Subjective Subjective Patient seen and examined. Complains of abdominal pain. Denies shortness of breath. Plan for paracentesis and thoracentesis. Denies other symptoms or complaints. Objective Data Objective Data Vital Signs: Vital Signs Temp Pulse Resp BP Pulse Ox 98.3 F 95 16 104/66 92 12/12/20 10:12/12/20 10:12/12/20 10:12/12/20 10:12/12/20 10:15 Oxygen Flow Rate (L/min) 2 Oxygen Delivery Method Room Air Weight: 92 lb 13.034 oz Body Mass Index (BMI) 18.2 Intake & Output: Intake and Output for Last 24 Hours 12/10/20 12/11/20 12/12/20 23:59 23:59 23:59 Intake Total 672.38 / 672.38 Balance 672.38 / 672.38 Medical Nutrition Assessment Dietitian: Malnutrition Criteria Met Start: 12/12/20 11:41 Freq: Status: Active Protocol: Document 12/12/20 11:41 RMA (Rec: 12/12/20 11:41 RMA [id number]) Nutrition Malnutrition Evidence of Malnutrition Exists Yes Malnutrition (severe): Chronic Evidenced By Suboptimal Energy Intake ( Severe),Physical Changes ( Severe) Clinical Problem Chronic Disease or Condition Related Malnutrition Etiology Severe protein/calorie malnutrition in the context of chronic disease related to increased energy expenditure due to malignancy/catabolic state Signs/Symptoms as evidenced by muscle/fat wasting of the face, temporals , clavicle, arms and upper body, +nutrition focused physical exam, BMI 18.7 (fluid overloaded) and meeting less than 50% estimated nutrition needs. Status Active Problem Recommendation Dietitian Recommendations/Changes Regular diet; no added salt due to fluid retention; fluid restriction as indicated--will defer for now due to malnutrition/palliative care. Will add 240ml chocolate ensure enlive BID w/ breakfast and dinner (700 kcal/40gm protein). Will add orange magic cup BID w/ lunch and dinner (580 kcal/ 18 gm pro). Adjust ONS as needed to optimize oral intake. Lab / Micro Data Result Diagrams: 12/12/20 02:00 12/12/20 02:00 Labs: Laboratory Results - last 24 hr 08/31/21 15:55: WBC 8.7, RBC 4.58, Hgb 12.9, Hct 40.8, MCV 89.1, MCH 28.2, MCHC 31.6 L, RDW Std Deviation 56.9 H, RDW Coeff of Brittani 17.8 H, Plt Count 481 H, MPV 9.6, Immature Gran % (Auto) 0.800, Neut % (Auto) 84.0 H, Lymph % (Auto) 9.7 L, [place] % (Auto) 4.4, Eos % (Auto) 0.5, Baso % (Auto) 0.6, Absolute Neuts (auto) 7.3, Absolute Lymphs (auto) 0.84, Nucleated RBC % 0 12/11/20 15:55: Sodium 136, Potassium 3.6, Chloride 103, Carbon Dioxide 26.0, Anion Gap 7, BUN 27 H, Creatinine 0.52 L, Estim Creat Clear Calc 75.28, Est GFR (MDRD) Af Amer 156, Est GFR (MDRD) Non-Af 129, BUN/Creatinine Ratio 51.5 H, Glucose 131 H, Calcium 8.4 L, Total Bilirubin 0.20, AST 32, ALT 21, Alkaline Phosphatase 135 H, Troponin I High Sens 8, Total Protein 6.3 L, Albumin 1.8 L, Globulin 4.5 H, Albumin/Globulin Ratio 0.4 L 12/11/20 15:55: B-Natriuretic Peptide 22.3 12/11/20 19:50: PT 16.1 H, INR 1.4, APTT 36.4 H 12/12/20 02:00: WBC 6.9, RBC 4.06 L, Hgb 11.4 L, Hct 36.0 L, MCV 88.7, MCH 28.1, MCHC 31.7 L, RDW Std Deviation 57.4 H, RDW Coeff of Brittani 18.0 H, Plt Count 456 H, MPV 9.4, Immature Gran % (Auto) 0.600, Neut % (Auto) 78.8 H, Lymph % (Auto) 12.6 L, [place] % (Auto) 6.7, Eos % (Auto) 0.9, Baso % (Auto) 0.4, Absolute Neuts (auto) 5.4, Absolute Lymphs (auto) 0.87, Nucleated RBC % 0 12/12/20 02:00: Sodium 136, Potassium 3.7, Chloride 106, Carbon Dioxide 25.0, Anion Gap 5, BUN 24 H, Creatinine 0.39 L, Estim Creat Clear Calc 105.49, Est GFR (MDRD) Af Amer 222, Est GFR (MDRD) Non-Af 183, BUN/Creatinine Ratio 62.2 H, Glucose 122 H, Calcium 8.1 L, Total Bilirubin 0.30, AST 25, ALT 18, Alkaline Phosphatase 118 H, Total Protein 5.8 L, Albumin 1.6 L, Globulin 4.2, Albumin/Globulin Ratio 0.4 L 12/12/20 02:00: APTT 126.1 H* 12/12/20 02:00: Lactate Dehydrogenase 256 H, Total Protein 5.7 L, Globulin 4.0, Albumin/Globulin Ratio 0.4 L 12/12/20 10:40: APTT 40.9 H Micro: Microbiology 12/11/20 18:35 Nasal Secretion SARS-CoV-2 Antigen (Rapid) - Final Radiography Diagnostic Testing: Radiology Impression Chest CTA 12/11/20 15:41 IMPRESSION: 1. Positive for pulmonary embolism within the right ascending pulmonary artery. 2. Very large bilateral pleural effusions with bibasilar atelectasis. 3. Anasarca. 4. Cachexia. Electronically Signed: Jayy Escobar MD at 17:03 EDT Tel , Service support , Physical Exam Const alert, oriented x3 and no apparent distress Orientation / Consciousness: awake, oriented to person, oriented to place and oriented to time HEENT normocephalic and moist oral mucous membranes Eyes PERRL, EOMs intact bilaterally and conjunctivae normal Neck no lymphadenopathy Resp clear to auscultation bilaterally Auscultation: diminished lung sounds Cardio regular rate, regular rhythm and no murmurs Peripheral Pulses: pulses 2+ throughout GI normal to inspection, nondistended, normoactive bowel sounds and non-tender GI Narrative: Distended, ascites Extremity normal to inspection Skin no rashes or lesions noted Lesions: no lesions Rashes: no rashes Trauma: no lacerations or abrasions Neuro CN's II-XII intact bilaterally, no focal motor deficits, no sensory deficits noted and deep tendon reflexes 2+ bilaterally Psych mental status grossly normal and affect normal Assessment & Plan Assessment/Plan (1) Bilateral pleural effusion: PLAN: 1. Acute hypoxic respiratory failure secondary to bilateral pleural effusions, complicated by recent diagnosis PE-plan for therapeutic and diagnostic thoracentesis. Pulmonary medicine following. Oxygen currently stable on room air. Supplement oxygen to maintain O2 at above 90%. Will need home oxygen testing prior to discharge. Thoracentesis labs ordered. 2. Malignant ascites-has been undergoing routine paracentesis, ordered by PCP. Plan for therapeutic paracentesis prior to thoracentesis. 3. Recent diagnosis PE/DVT-Heparin drip. Resume Eliquis following paracentesis/thoracentesis. 4. Stage IV metastatic cervical cancer-palliative care consult. Not amendable to cancer treatment or hospice. Pain management. 5. Severe protein calorie malnutrition-dietitian consult. DVT prophylaxis-Heparin drip This patient was seen by TAMMY Espino under the supervision of Dr. Bueno. Documented by User: Dr. Adilene Bueno MD 12/12/20 16:01 Objective Data Lab / Micro Data Result Diagrams: 12/12/20 02:00 12/12/20 02:00 Charges/Coding Addendum Addendum: This patient was seen in conjunction with Mony Bills. I have independently interviewed and examined the patient and reviewed pertinent historical, laboratory, and other data. I have reviewed her note and concur with her documentation Patient was seen and examined. Pain is controlled. She will be going for paracentesis and thoracocentesis. She will receive albumin post procedure. Physical Exam: Gen: Looks in some discomfort, not pale, not jaundiced, cachectic CVS:HS I +II, regular, no murmurs RESP: Diminished at lung bases, crackles GI: BS present and normal, soft, nontender, no palpable organs EXT:No edema ASSESSMENT: 1. Hypoxia secondary to acute PE/pleural effusion 2. Bilateral massive pleural effusion 3. Acute PE/recent DVT 4. Stage IV metastatic cervical CA 5. Severe protein calorie malnutrition Plan: Hold Heparin drip for thoracocentesis and paracentesis IV albumin and gentle IV fluids post procedure Continue pain control Possible discharge today Visit Charges Inpatient E&M: [id number] [facility] Hosp L3
--- NOTE | 2020-12-12 13:30 | US_ITS ---
PROCEDURE: ULTRASOUND GUIDED THORACENTESIS. CLINICAL INDICATION: 55-year-old female with ascites and pleural effusion.. PHYSICIAN: Iman Thorpe MD MEDICATIONS: 1% lidocaine administered subcutaneously for local anesthesia. ACCESS SITE: Left lower thorax, posterior approach. CATHETER: 5 Citizen Of [place] thoracentesis needle/catheter system. FLUID: Approximately 1650 mL of pale yellow pleural fluid removed. COMPLICATIONS: None immediate. The risks, benefits, and alternatives to the procedure and sedation were explained to the patient. The specific risks of bleeding, infection, and pneumothorax requiring chest tube insertion were discussed and accepted. Written informed consent was obtained. PROCEDURE: Ultrasonographic evaluation of the left lower pleural space was carried out. An adequate pocket was identified. The patient was placed in the sitting, upright position. The overlying skin was prepped and draped in sterile fashion. 1% lidocaine was administered subcutaneously for local anesthesia. Under ultrasound guidance, a 5 Citizen [place] thoracentesis needle/catheter system was advanced into the left posterior lower pleural fluid collection. The inner stylet was removed and there was spontaneous flow of pleural fluid. Approximately 1650 mL of fluid was manually aspirated. The catheter was removed. Hemostasis was achieved and a sterile dressing was applied. A specimen was collected and sent to the laboratory for analysis, as requested by the referring clinician. The patient tolerated the procedure well, without immediate complications. A chest x-ray was ordered. US/Thoracentesis W US IMPRESSION: Successful ultrasound-guided left thoracentesis. Electronically Signed: Bridger Thorpe MD at 16:54 EDT Tel , Service support ,
--- NOTE | 2020-12-12 14:30 | RAD_ITS ---
INDICATION: post thora EXAMINATION/TECHNIQUE: X-RAY - XR Chest 2 Views COMPARISON: CT chest obtained 12/11/2020. FINDINGS: LINES/DEVICES: None. LUNGS: Prominence of the bronchovascular interstitial lung markings is visualized bilaterally, improved aeration of the left hemithorax is visualized in comparison to the prior study with mild blunting of the left costophrenic angle, no evidence of left pneumothorax is seen. Moderate right pleural effusion is seen, no evidence of right pneumothorax no evidence of parenchymal lung masses seen. MEDIASTINUM AND CARDIOVASCULAR STRUCTURES: Cardiovascular silhouette is within normal limits. BONES AND SOFT TISSUES: Mild degenerative bone changes. RAD/Chest Insp/Exp 2 View IMPRESSION: Improved aeration of the left hemithorax, no evidence of pneumothorax is seen. Electronically Signed: Bridger Thorpe MD at 15:40 EDT Tel , Service support ,
--- NOTE | 2020-12-12 15:05 | CASEMGMT ---
BONNIE GOMEZ assessment: Initial transition planning/care coordination assessment. BONNIE GOMEZ introduced self and role at [facility], pt/ voice understanding and consent to assessment. Pt is on room air in no distress. Pt is A/Ox4 but speaks mostly cook islander and husbands interprets at this time. Pt with known stage 4 uterine cancer and per chart, is doing diet changes but no treatment currently. Pt has been getting OP paracentesis. Pt had left thoracentesis and a paracentesis today. Pt to have right thoracentesis tomorrow. Care providers, pharmacy, and demographics verified. Presentation: SOB for several days, known DVT, unable to lie flat-pt already on Eliquis Admitting dx: Pleural effusions, PE PCP: Jailyn Specialists: Pt states no current specialists. [facility]erred [facility] Insurance: [facility] Prescription Benefit: [facility] Living Will/HPOA: Pt states does not have LW/HPOA and declines AD info at this time. LNOK: Neil Christianson, Living Arrangements: Pt lives with in mobile home and states no concerns at home. Pt is independent with ADL's. has been caring for any pt needs. Transportation: Pt's drives and states no transportation concerns. DME/HHC: Pt states no current DME or need for any DME. Pt states no hx of HHC or SNF. Pt already scheduled to see palliative 01/01/21 and palliative aware that pt admitted. Palliative to see pt while IP and pt/ aware. Pt states no concerns with going home at time of discharge. Pt is unemployed. Pt states does not smoke cigarettes or drink ETOH. Pt states no further concerns/needs. CM to follow for any further discharge planning/needs. Advised pt/ to ask for CM if any further questions/concerns/needs arise, voices understanding. Pt Goal: Home Plan[place] BONNIE GOMEZ
[2020-12-12 15:14] LABS: Cytology, Body Fluid / CSF SEE PATHOLOGY REPORT
[2020-12-12] MEDS: Albumin Human 25% (100 mL) 25 GM/100 ML BAG IV (15:34)
[2020-12-12 15:39] LABS: Body Fluid Mononuclear WBC # 0.304 10^3/uL; Body Fluid Polynuclear WBC # 0.006 10^3/uL; Body Fluid Total Cells Counted 0.328 10^3/ul; Red Cell Count/Body Fluid 0.003 10^6/ul
[2020-12-12 15:46] LABS: Auto B Fluid Analyzer BKGD Ct COUNTS W/IN LIMITS (W/IN LIMITS); Source- Body Fluid THORACENTESIS
--- NOTE | 2020-12-12 16:02 | CHAPLAIN ---
Type of Pastoral Visit _x__ Initial Visit ___ Follow-up Visit ___ On-call Visit ___ General Patient Visit ___ Spiritual Assessment ___ Family Conference ___ Bereavement ___ Rapid Response ___ Code Blue ___ Other (describe below) Pastoral Care Referral From _x__ Patient ___ Family ___ Nurse ___ Physician ___ Health Inspector Food ___ Link Trainer Operator ___ Other (describe below) Sacrament/Intervention ___ Active listening ___ Anointing ___ Holiness ___ Bereavement ___ Communion ___ Veena exploration ___ ___ Life review _x__ Prayer ___ Reconciliation ___ Sacrament of Sick _x__ Supportive presence ___ Wedding ___ Other (describe below) Pastoral Comments followed CM into room; patient says that she is really tired but would like prayer; spouse at bedside who indicates they are people of veena and prayer and welcome this support; pt indicates no other needs at this time but to rest
[2020-12-12 16:19] LABS: LDH,Body Fluid 151 Units/l (Not Establ.); Protein, Body Fluid 3.7 g/dL (Not Establ.)
[2020-12-12 16:41] LABS: Appearance/Body Fluid CLEAR; Body Fluid QC Type(s) BF2Q; Color/Body Fluid YELLOW
[2020-12-12 16:45] LABS: Lymphocytes 78 %; Mesothelial Cells 8 %; Monocytes 10 %; Neutrophil (Segs) 4 %
[2020-12-12] MEDS: 0.9% Normal Saline 1,000 ML 75 ML IV (17:08)
[2020-12-12 20:08] LABS: Partial Thromboplast Time 31.7 Seconds (24.1-36.2)
[2020-12-13] VITALS (12 sets, daily range): BP systolic 85–106; BP diastolic 55–66; PULSE 79–105; RESP 18–36; TEMP 36.5–36.7; O2SAT 92–99
[2020-12-13 00:24] LABS: Partial Thromboplast Time 43.2 Seconds (24.1-36.2)
[2020-12-13] MEDS: Heparin Injection (Vial) 5,000 UNIT/ML VIAL IV ×2 (00:30→06:59)
[2020-12-13] MEDS: HYDROcodone Bitartrate/Apap 5/325 Tablet PO ×2 (05:24→13:30)
[2020-12-13 06:28] LABS: Absolute Lymphocyte Count 0.68 X10^3/uL (0.83-4.51); Absolute Neutrophil Count 6.5 X10^3/uL (2.0-7.7); Basophil# 0.04 X10^3/uL; Basophil% 0.5 % (0-1); Eosinophil# 0.03 X10^3/uL; Eosinophils% 0.4 % (0-5); Hematocrit 35.2 % (37-47); Hemoglobin 10.4 g/dL (12.0-15.0); Lymphocyte # 0.68 X10^3/ul (0.83-4.51); Lymphocyte % 8.9 % (19-41); Mean Corp Hgb Conc 29.5 g/dL (32-36); Mean Corpuscular Hgb 28.4 pg (27.0-32.0); Mean Corpuscular Volume 96.2 fL (81-99); Mean Platelet Vol. 9.6 fl (6.2-12.0); Monocyte# 0.43 X10^3/uL; Monocyte% 5.6 % (0-10); NRBC Flagged by Analyzer 0 % (0-5); Neutrophil # 6.47 X10^3/uL (2.7-7.7); Neutrophil % 84.2 % (47-70); Platelet Count 399 K/mm3 (150-450); RBC Distribution Width CV 18.5 % (11.6-14.6); RBC Distribution Width SD 64.7 fl (35.1-43.9); Red Blood Count 3.66 M/mm3 (4.2-5.4); White Blood Count 7.7 K/mm3 (4.4-11.0)
[2020-12-13 06:44] LABS: Partial Thromboplast Time 46.7 Seconds (24.1-36.2)
[2020-12-13 06:49] LABS: Anion Gap 8 (5-15); BUN 20 mg/dL (7-18); BUN/Creat Ratio 56.8 RATIO (10-20); Calcium,Total 7.7 mg/dL (8.5-10.1); Chloride 107 mmol/L (98-107); Creatinine, Serum 0.35 mg/dL (0.55-1.02); EST Glomerular Filtration Rate 204 mL/min (>60); Est Glom Filt Rate - Afr Amer 247 mL/min (>60); Glucose 156 mg/dL (74-106); Potassium 3.1 mmol/L (3.5-5.1); Sodium Level 139 mmol/L (136-145)
[2020-12-13] MEDS: 0.9% Saline Lock 10 ML Syringe IV (08:32)
[2020-12-13] MEDS: Furosemide 40 MG/4 ML Vial IV (08:32)
[2020-12-13] MEDS: NYSTATIN 500,000 UNIT/5 ML UDC 500000 UNIT PO (08:32)
--- NOTE | 2020-12-13 09:39 | PCM.CONS.P ---
Assessment & Plan Assessment/Plan (1) Cancer related pain: (2) Shortness of breath: (3) Abdominal pain: QUALIFIERS: Abdominal location: generalized Qualified Code(s): R10.84 - Generalized abdominal pain (4) Uterine cancer: QUALIFIERS: Malignant neoplasm of uterus location: unspecified site of uterus Qualified Code(s): C55 - Malignant neoplasm of uterus, part unspecified (5) Bilateral pleural effusion: (6) Ascites: QUALIFIERS: Ascites type: malignant Qualified Code(s): R18.0 - Malignant ascites (7) Pulmonary embolism: QUALIFIERS: Pulmonary embolism type: other Chronicity: unspecified Acute cor pulmonale presence: unspecified Qualified Code(s): I26.99 - Other pulmonary embolism without acute cor pulmonale (8) DVT (deep venous thrombosis): QUALIFIERS: DVT location: lower extremity Affected thrombotic vein of extremity: unspecified vein of extremity Chronicity: acute Laterality: left Qualified Code(s): I82.402 - Acute embolism and thrombosis of unspecified deep veins of left lower extremity PLAN: 55 yr old F with stage 4 uterine cancer, seen today for palliative consult for symptom management of cancer-related abdominal pain, recurrent ascites, shortness of breath, and weakness. 1. Cancer related pain: abdominal mostly, + ascites. PCP providing hydrocodone 5/325mg 1 tab q6h prn. Also on gabapentin? Ran OARRS. - recommend continuing hydrocodone for now since it is effective for her pain, but may be pertinent to start long-acting opioid if pill burden becomes too high, possibly morphine since renal function intact - this would also help with any shortness of breath. Would likely eventually switch to oxycodone as well. We will adjust medications as outpatient. 2. Shortness of breath: malignant effusions. No home O2. See above. 3. Uterine cancer: stage 4. No chemo or radiation. Conservative management, was seeing Dr. Sotelo but declined treatment. Discussions in past w/ spouse have been negative regarding hospice, he became very upset at the mention of it. Will see patient in home within the next 1-2 weeks. 4. DVT/PE/bilat recurrent pleural effusions/ascites: Complicates overall care and prognosis. Anticoagulated on Eliquis. Management per PCP. Palliative consents have been signed as outpatient. This was initial consult. Palliative will be managing cancer-related pain, shortness of breath, and any other symptom that arises from her cancer diagnosis. Patient will likely be discharged today. Greater than 50% of visit dedicated to education and counseling on palliative services, limitations, medication management, diagnosis education, and coordination of care. Patient does not have an oncologist since she declined treatment. HPI Consult Data Date of Consult: 12/13/20 HPI Narrative HPI Narrative: MALIKA TAN, is a 55 F, PMH as below, who presented to [facility] 12/11/2020 with complaints of increased shortness of breath and gurgling in her lungs. Patient speaks mainly Turkish but spouse translates. Patient has history of inoperable stage IV uterine cancer in July 2020. Undergoes paracentesis for her chronic abdominal ascites. No chemotherapy. Recently diagnosed with DVT left LE. Patient has undergone paracentesis and left thoracentesis 12/12. Possible right thoracentesis today. Patient no longer follows with oncology. She prefers conservative management but understands her cancer is incurable. BPs have been low, she is symptomatic at times. Feels short of breath. No n/v/d. No vision changes. No incontinence. Abdominal pain increases with palpation, rates 1/10 at rest, 8-10/10 with movement or palpation. Takes hydrocodone at home, which so far has been effective for her pain. On average taking 3 tabs/24h. Bowels move but not as often as she would like. No home O2, nursing is trying to wean her prior to discharge, which will possibly be later today. She takes grupo-colace 2 tabs at home. Spouse (Neil Christianson) not present during visit, will try to speak with him before leaving. Patient has 3 children, ages 17, 18, and 25. Pt lives w/ her family in mobile home and has been independent with most ADL's, spouse helps when needed. [facility] Medical History Cervical cancer DVT (deep venous thrombosis) Home Medications apixaban [Eliquis DVT-PE Treat 30D Start] 10 mg PO BID 12/11/20 [History Last Taken 12/11/20] hydrocodone-acetaminophen 1 tab PO Q8H PRN PRN 12/11/20 [History Last Taken 12/11/20] nystatin 5 ml PO 4X/DAY 12/11/20 [History Last Taken 12/11/20] sennosides-docusate sodium [P-COL RITE] 2 tab PO DAILY 12/11/20 [History Last Taken 12/11/20] Allergy/AdvReac Type Severity Reaction Status Date / Time No Known Allergies Allergy Verified 12/11/20 15:08 Family History Father Diabetes Mother Diabetes Surgical History History of 2 sections Social History household members: significant other housing: house Smoking Status: Never smoker Physical Exam Const alert, oriented x3 and no apparent distress General Appearance: cooperative and frail Exam Limitations: other limitations Nutritional Appearance: cachectic HEENT normocephalic and head/scalp atraumatic Neck supple General: trachea midline Resp normal respiratory effort Effort and Inspection: able to speak in complete sentences and symmetric chest movement Auscultation: rales bilateral (posteriorly) and diminished lung sounds diffuse Cardio S1 normal heart sound and S2 normal heart sound Rate: regular rate Rhythm: abnormal rhythm ectopic beats GI hepatosplenomegaly Inspection: anasarca present and abdominal distention Auscultation: hypoactive bowel sounds Palpation: tender, guarding and rigid Extremity no clubbing, cyanosis or edema Skin no rashes or lesions noted Neuro CN's II-XII intact bilaterally, moves all extremities and no focal motor deficits Neuro Narrative: mild language barrier, able to follow commands appropriately. Psych mental status grossly normal Attitude: calm and engaged Activity / Motor Behavior: appropriate eye contact Speech: normal speech Memory / Cognition: memory grossly intact
--- NOTE | 2020-12-13 11:00 | CASEMGMT ---
Pt is on 2.5L nc at this time but is scheduled to have thoracentesis today on the right. This RN CM to room to see if has a preference for DME company if pt would qualify for home oxygen at discharge. does not feel that pt will need oxygen at discharge after the procedure is complete and unable to make a decision on company at this time. Pt is not to have thoracentesis until [id number] so Green sheet left on chart for home oxygen need and scripts left for several companies. Andrea PCU charge, updated, voices understanding. Jey NICOLE aware to test pt s/p procedure. states no further concerns/needs. Zaria NICOLE CM
--- NOTE | 2020-12-13 12:23 | PN.CC_ITS ---
Assessment & Plan Assessment/Plan (1) Bilateral pleural effusion: (2) DVT (deep venous thrombosis): QUALIFIERS: DVT location: lower extremity Affected thrombotic vein of extremity: unspecified vein of extremity Chronicity: acute Laterality: left Qualified Code(s): I82.402 - Acute embolism and thrombosis of unspecified deep veins of left lower extremity (3) Pulmonary embolism: QUALIFIERS: Pulmonary embolism type: other Chronicity: unspecified Acute cor pulmonale presence: unspecified Qualified Code(s): I26.99 - Other pulmonary embolism without acute cor pulmonale PLAN: RECOMMENDATIONS: 1. Continue heparin drip pending clearance of Eliquis 2. Complete therapeutic thoracentesis on the right 3. Consider hospice measures 4. Walking oximetry prior to discharge 5. Okay to follow up in our office in 6 weeks with nurse practitioner IMPRESSIONS: 1. Acute respiratory insufficiency secondary to large bilateral effusions and PE Patient's thoracentesis was well-tolerated, but it is showing an exudate pattern with lymphocytosis as a predominant cell type. This would be consistent with possible malignancy. Cytology is still pending. Patient may have rapid reaccumulation. The fact that she had less in her abdomen is suggesting that there may be translocation happening. Patient was advised that she should have a right thoracentesis today, but if she develops worsening shortness of breath after discharge, a chest x-ray should be obtained. Patient understands that she might be able to have a repeat thoracentesis as an outpatient to avoid repeat hospitalization. Overall prognosis is poor, but patient does report that her ascitic fluid has not been accumulating as rapidly. Patient should have a walki ng oximetry prior to discharge as she will be at risk for exertional hypoxemia. 2. DVT/cervical cancer/severe protein malnutrition Complicates care, management, recovery and prognosis. Patient would benefit from a dietitian evaluation. Unclear if decreased albumin is secondary to malignancy versus decreased production from liver metastasis versus strict alternative diet as a substitute for chemotherapy. Overall prognosis is poor, but family reportedly has been very resistant to hospice measures in the past. Subjective Subjective Patient did well overnight. No acute issues were reported. Patient feels subjectively improved following thoracentesis. No chest pain is reported. Kerline ent reports better exercise tolerance. Objective Data Objective Data Labs for thoracentesis are consistent with an exudate etiology. Given lymphocytic predominance, malignancy is highly suspected. Cytology is pending. Vital Signs: Vital Signs Temp Pulse Resp BP Pulse Ox 36.6 C 79 18 85/59 L 99 12/13/20 08:10 12/13/20 08:10 12/13/20 08:10 12/13/20 08:10 12/13/20 08:10 Oxygen Flow Rate (L/min) 2.5 Oxygen Delivery Method [4] Room Air Oxygen Delivery Method [3] Room Air Oxygen Delivery Method [2] Room Air Oxygen Delivery Method [1 ( Room Air Initial Baseline)] Oxygen Delivery Method Nasal Cannula Weight: 42.1 kg Body Mass Index (BMI) 18.2 Intake & Output: Intake and Output for Last 24 Hours 12/11/20 12/12/20 12/13/20 23:59 23:59 23:59 Intake Total 772.38 / 772.38 968.40 / 968.40 Output Total 2750 / 2750 Balance -62 / - 968.40 / 968.40 Medical Nutrition Assessment Dietitian: Malnutrition Criteria Met Start: 12/12/20 11:41 Freq: Status: Active Protocol: Document 12/12/20 11:41 RMA (Rec: 12/12/20 11:41 RMA [id number]) Nutrition Malnutrition Evidence of Malnutrition Exists Yes Malnutrition (severe): Chronic Evidenced By Suboptimal Energy Intake ( Severe),Physical Changes ( Severe) Clinical Problem Chronic Disease or Condition Related Malnutrition Etiology Severe protein/calorie malnutrition in the context of chronic disease related to increased energy expenditure due to malignancy/catabolic state Signs/Symptoms as evidenced by muscle/fat wasting of the face, temporals , clavicle, arms and upper body, +nutrition focused physical exam, BMI 18.7 (fluid overloaded) and meeting less than 50% estimated nutrition needs. Status Active Problem Recommendation Dietitian Recommendations/Changes Regular diet; no added salt due to fluid retention; fluid restriction as indicated--will defer for now due to malnutrition/palliative care. Will add 240ml chocolate ensure enlive BID w/ breakfast and dinner (700 kcal/40gm protein). Will add orange magic cup BID w/ lunch and dinner (580 kcal/ 18 gm pro). Adjust ONS as needed to optimize oral intake. Lab / Micro Data Result Diagrams: 12/13/20 06:18 12/13/20 06:18 Labs: Laboratory Results - last 24 hr 12/12/20 19:30: APTT 31.7 12/12/20 : Fluid Glucose 144 H, Fluid Total Protein 3.7, Fluid LDH 151 12/12/20 : Fluid Source THORACENTESIS, Fluid Color YELLOW, Fluid Appearance CLEAR, Fluid WBC 0.310, Fluid RBC 0.003, Fluid Tot Cell Count 0.328 H, Fld Polynuclear WBCs # 0.006, Fld Polynuclear WBCs % 2.0, Fluid Mononuclear WBCs 0.304, Fld Mononuclear WBCs % 98.0, Fluid Neutrophils 4, Fluid Lymphocytes 78, Fluid Monocytes 10, Fld Mesothelial Cells 8, Fl Pathologist Comment May follow, Fluid Comment 2 SEE COMMENT 12/13/20 00:00: APTT 43.2 H 12/13/20 06:18: WBC 7.7, RBC 3.66 L, Hgb 10.4 L, Hct 35.2 L, MCV 96.2 D, MCH 28.4, MCHC 29.5 L D, RDW Std Deviation 64.7 H, RDW Coeff of Brittani 18.5 H, Plt Count 399, MPV 9.6, Immature Gran % (Auto) 0.400, Neut % (Auto) 84.2 H, Lymph % (Auto) 8.9 L, [place] % (Auto) 5.6, Eos % (Auto) 0.4, Baso % (Auto) 0.5, Absolute Neuts (auto) 6.5, Absolute Lymphs (auto) 0.68 L, Nucleated RBC % 0 12/13/20 06:18: Sodium 139, Potassium 3.1 L, Chloride 107, Carbon Dioxide 24.0, Anion Gap 8, BUN 20 H, Creatinine 0.35 L, Estim Creat Clear Calc 120.70, Est GFR (MDRD) Af Amer 247, Est GFR (MDRD) Non-Af 204, BUN/Creatinine Ratio 56.8 H, Glucose 156 H, Calcium 7.7 L 12/13/20 06:18: APTT 46.7 H Micro: Microbiology 12/11/20 18:35 Nasal Secretion SARS-CoV-2 Antigen (Rapid) - Final Radiography Diagnostic Testing: Radiology Impression Paracentesis Ultrasound 12/12/20 11:16 IMPRESSION: Ultrasound guided paracentesis. Electronically Signed: Bridger Thorpe MD at 17:03 EDT Tel , Service support , Thoracentesis Ultrasound 12/12/20 13:30 IMPRESSION: Successful ultrasound-guided left thoracentesis. Electronically Signed: Bridger Thorpe MD at 16:54 EDT Tel , Service support , Chest X-Ray 12/12/20 14:30 IMPRESSION: Improved aeration of the left hemithorax, no evidence of pneumothorax is seen. Electronically Signed: Bridger Thorpe MD at 15:40 EDT Tel , Service support , Physical Exam Const alert and oriented x3 General Appearance: frail and appears older than stated age HEENT normocephalic and head/scalp atraumatic Eyes PERRL and EOMs intact bilaterally Chest inspection of chest normal Chest: symmetrical chest wall rise; Negative for crepitus Resp Auscultation: diminished lung sounds Percussion: dullness Upper: left, Mid: bilateral and Lower: bilateral Cardio regular rate, regular rhythm, S1 normal heart sound, S2 normal heart sound, no murmurs, no rub and no gallops GI soft to palpation and non-tender Inspection: anasarca present Palpation: tender suprapubic and ascites; Negative for guarding or rigid Percussion: dullness to percussion and fluid wave Extremity normal to inspection General Extremity: Negative for clubbing, cyanosis or edema Skin no rashes or lesions noted Neuro oriented x3, CN's II-XII intact bilaterally and moves all extremities Psych mental status grossly normal, thought process normal and cooperative Charges/Coding Visit Charges Inpatient E&M: 03667 Subs Hosp L2
--- NOTE | 2020-12-13 12:37 | US_ITS ---
PROCEDURE: ULTRASOUND GUIDED THORACENTESIS. CLINICAL INDICATION: 55-year-old female with ovarian cancer presenting with right pleural effusion.. PHYSICIAN: Iman Thorpe MD MEDICATIONS: 1% lidocaine administered subcutaneously for local anesthesia. ACCESS SITE: Right lower thorax, posterior approach. CATHETER: 5 [place] thoracentesis needle/catheter system. FLUID: Approximately 750 mL of yellow pleural fluid removed. COMPLICATIONS: None immediate. The risks, benefits, and alternatives to the procedure and sedation were explained to the patient. The specific risks of bleeding, infection, and pneumothorax requiring chest tube insertion were discussed and accepted. Written informed consent was obtained. PROCEDURE: Ultrasonographic evaluation of the right lower pleural space was carried out. An adequate pocket was identified. The patient was placed in the sitting, upright position. The overlying skin was prepped and draped in sterile fashion. 1% lidocaine was administered subcutaneously for local anesthesia. Under ultrasound guidance, a 5 [place] thoracentesis needle/catheter system was advanced into the right posterior lower pleural fluid collection. The inner stylet was removed and there was spontaneous flow of pleural fluid. Approximately 750 mL of fluid was manually aspirated. The catheter was removed. Hemostasis was achieved and a sterile dressing was applied. A specimen was collected and sent to the laboratory for analysis, as requested by the referring clinician. The patient tolerated the procedure well, without immediate complications. A chest x-ray was ordered. US/Thoracentesis W US IMPRESSION: Successful ultrasound-guided right thoracentesis. Electronically Signed: Bridger Thorpe MD at 16:18 EDT Tel , Service support ,
[2020-12-13] MEDS: Senna/Docusate Sodium 1 Tablet 2 TABLET PO (13:33)
[2020-12-13] MEDS: Lidocaine 2% (20 ml mdv) 20 ML Vial (15:30)
--- NOTE | 2020-12-13 15:45 | RAD_ITS ---
INDICATION: post thora, RIGHT side EXAMINATION/TECHNIQUE: X-RAY - XR Chest 2 Views COMPARISON: Chest x-ray obtained 12/12/2020.. FINDINGS: LINES/DEVICES: EKG leads are seen superimposing the chest. LUNGS: No evidence of right pneumothorax is seen. Small fluid level visualized in the right lower lung field consistent with small right pleural effusion demonstrating significant decrease in comparison to the prior study. Patchy airspace opacification visualized in the left mid and lower lung torrez with a fluid level obscuring the left hemidiaphragm this demonstrates prominence in comparison to the prior study consistent with reaccumulation of a left pleural fluid. Mild prominence of the perihilar and bronchovascular markings is seen. MEDIASTINUM AND CARDIOVASCULAR STRUCTURES: Cardiac silhouette not enlarged. Central airways and mediastinal contour are unremarkable. BONES AND SOFT TISSUES: Unremarkable. RAD/Chest Insp/Exp 2 View IMPRESSION: No evidence of pneumothorax status post right thoracentesis, residual right pleural fluid is seen. Reaccumulation of the left pleural fluid is seen in comparison to the prior study. Electronically Signed: Bridger Thorpe MD at 16:12 EDT Tel , Service support ,
--- NOTE | 2020-12-13 16:22 | PCM.DC ---
Discharge Instructions Diet Discharge Diet: No restrictions Activity Discharge Activity: Return to Normal Activity Follow Up Care Test Results: Test results from this visit will be discussed in further detail at your follow-up appointment, if applicable. Discharge Plan Admission Admit Date/Time: 12/11/20 18:22 Primary Reason for Your Visit: Hypoxia/Massive bilateral pleural effusion/ascites Attending Provider: Adilene Bueno Primary Care Provider: Raza Glaser Consulting Providers: Ish Ross Instructions Additional Instructions / Restrictions: Continue to use your oxygen all the time Discharge Orders/Prescriptions Prescriptions: Continued nystatin 100,000 unit/mL suspension 5 ml PO 4X/DAY RF: 0 sennosides-docusate sodium [P-COL RITE] 8.6-50 mg tablet 2 tab PO DAILY RF: 0 Eliquis DVT-PE Treat 30D Start 5 mg (74 tabs) tablets,dose pack 10 mg PO BID RF: 0 hydrocodone-acetaminophen 5-325 mg tablet 1 tab PO Q8H PRN PRN (Reason: Pain) RF: 0 Referrals / Follow Up: Raza Glaser MD [Primary Care Provider] - Within 1 Week Disposition Disposition (needs filled in before D/C Order can be placed): Home, Self Care
--- NOTE | 2020-12-13 16:23 | DS.PCM_ITS ---
Providers Date of Admission: 12/11/20 Date of Discharge: 12/13/20 Primary Care Physician: Dr. Raza Glaser MD Consultations 12/11/20 18:29 Consult: Mangle [facility]cher / Pulmonary Medicine Routine Consulting Provider: Ish Ross Reason for Consult: PE, B/L Pleural effusions EMERGENT Consult: No MD Notified: Yes Date Notified: 12/12/20 Time Notified: 06:25 Method of Notification: Text Reason For Visit: PLEURAL EFFUSIONS, PE Diagnosis Discharge Diagnosis (1) Bilateral pleural effusion: Status: Acute Code(s): J90 - Pleural effusion, not elsewhere classified (2) DVT (deep venous thrombosis): Status: Acute Code(s): I82.409 - Acute embolism and thrombosis of unspecified deep veins of unspecified lower extremity Qualifiers: Affected thrombotic vein of extremity: unspecified vein of extremity Chronicity: acute DVT location: lower extremity Laterality: left Qualified Code(s): I82.402 - Acute embolism and thrombosis of unspecified deep veins of left lower extremity (3) Pulmonary embolism: Status: Acute Code(s): I26.99 - Other pulmonary embolism without acute cor pulmonale Qualifiers: Acute cor pulmonale presence: unspecified Chronicity: unspecified Pulmonary embolism type: other Qualified Code(s): I26.99 - Other pulmonary embolism without acute cor pulmonale (4) Acute respiratory failure with hypoxia: Status: Acute Code(s): J96.01 - Acute respiratory failure with hypoxia (5) Severe protein-calorie malnutrition: Status: Acute Code(s): E43 - Unspecified severe protein-calorie malnutrition Medications at Discharge Home Medications Eliquis DVT-PE Treat 30D Start 10 mg PO BID 12/11/20 hydrocodone-acetaminophen 1 tab PO Q8H PRN PRN 12/11/20 nystatin 5 ml PO 4X/DAY 12/11/20 sennosides-docusate sodium [P-COL RITE] 2 tab PO DAILY 12/11/20 Hospital Course Operations None Procedures Paracentesis (12/12/20) and Thoracentesis (12/12-12/13) Summary of Care Provided Minutes Spent on Discharge: 50 Hospital Course: 55-year-old female with past medical history of metastatic uterine/cervical CA, stage IV who presented with progressive shortness of breath. Patient was recently diagnosed with DVT in the left leg on 12/07/20. Patient placed on an alternate medicine for her cancer. In the ED, she was mildly tachypneic and tachycardic. Her abdominal exam showed tenderness. Her troponin and BNP were normal. CT of the chest was positive for acute PE within the right ascending pulmonary artery. She had very large bilateral pleural effusions with bibasilar atelectasis and anasarca. She was admitted to the PCU, managed on heparin drip. Pulmonology and IR were consulted. Patient underwent paracentesis and left thoracocentesis on 12/12/20. Patient underwent right thoracocentesis on 12/13/20. There was evidence of reaccumulation of the left pleural fluid. Patient may need a Pleurx catheter in the future. She will need a repeat chest X-ray in a week. Physical Exam Narrative Physical Exam: Gen: Appears frail, in some discomfort, not pale, not jaundiced, cachectic CVS:HS I +II, regular, no murmurs RESP: Diminished at lung bases, crackles GI: BS present and normal, soft, nontender, no palpable organs EXT:Bilateral pedal edema +1 Medical Records Data Medical Nutrition Assessment Dietitian: Malnutrition Criteria Met Start: 12/12/20 11:41 Freq: Status: Active Protocol: Document 12/12/20 11:41 RMA (Rec: 12/12/20 11:41 RMA [id number]) Nutrition Malnutrition Evidence of Malnutrition Exists Yes Malnutrition (severe): Chronic Evidenced By Suboptimal Energy Intake ( Severe),Physical Changes ( Severe) Clinical Problem Chronic Disease or Condition Related Malnutrition Etiology Severe protein/calorie malnutrition in the context of chronic disease related to increased energy expenditure due to malignancy/catabolic state Signs/Symptoms as evidenced by muscle/fat wasting of the face, temporals , clavicle, arms and upper body, +nutrition focused physical exam, BMI 18.7 (fluid overloaded) and meeting less than 50% estimated nutrition needs. Status Active Problem Recommendation Dietitian Recommendations/Changes Regular diet; no added salt due to fluid retention; fluid restriction as indicated--will defer for now due to malnutrition/palliative care. Will add 240ml chocolate ensure enlive BID w/ breakfast and dinner (700 kcal/40gm protein). Will add orange magic cup BID w/ lunch and dinner (580 kcal/ 18 gm pro). Adjust ONS as needed to optimize oral intake. Weight / BMI Weight Weight: 42.1 kg Body Mass Index (BMI) 18.2 ABG / Lab / Microbiology Data Result Diagrams: 12/13/20 06:18 12/13/20 06:18 Laboratory: Laboratory Results - last 24 hr 12/12/20 19:30: APTT 31.7 12/12/20 : Fluid Source THORACENTESIS, Fluid Color YELLOW, Fluid Appearance C LEAR, Fluid Neutrophils 4, Fluid Lymphocytes 78, Fluid Monocytes 10, Fld Mesothelial Cells 8, Fl Pathologist Comment May follow, Fluid Comment 2 SEE COMMENT 12/13/20 00:00: APTT 43.2 H 12/13/20 06:18: WBC 7.7, RBC 3.66 L, Hgb 10.4 L, Hct 35.2 L, MCV 96.2 D, MCH 28.4, MCHC 29.5 L D, RDW Std Deviation 64.7 H, RDW Coeff of Brittani 18.5 H, Plt Count 399, MPV 9.6, Immature Gran % (Auto) 0.400, Neut % (Auto) 84.2 H, Lymph % (Auto) 8.9 L, [place] % (Auto) 5.6, Eos % (Auto) 0.4, Baso % (Auto) 0.5, Absolute Neuts (auto) 6.5, Absolute Lymphs (auto) 0.68 L, Nucleated RBC % 0 12/13/20 06:18: Sodium 139, Potassium 3.1 L, Chloride 107, Carbon Dioxide 24.0, Anion Gap 8, BUN 20 H, Creatinine 0.35 L, Estim Creat Clear Calc 120.70, Est GFR (MDRD) Af Amer 247, Est GFR (MDRD) Non-Af 204, BUN/Creatinine Ratio 56.8 H, Glucose 156 H, Calcium 7.7 L 12/13/20 06:18: APTT 46.7 H 12/13/20 13:10: APTT 39.0 H Microbiology: Microbiology 12/12/20 Unknown Fluid - Thoracentesis Fluid Gram Stain - Final 12/12/20 Unknown Fluid - Thoracentesis Fluid Body Fluid Culture - Preliminary No growth-Final to follow 12/11/20 18:35 Nasal Secretion SARS-CoV-2 Antigen (Rapid) - Final Radiography Diagnostic Testing: Radiology Impression Paracentesis Ultrasound 12/12/20 11:16 IMPRESSION: Ultrasound guided paracentesis. Electronically Signed: Bridger Thorpe MD at 17:03 EDT Tel , Service support , Thoracentesis Ultrasound 12/12/20 13:30 IMPRESSION: Successful ultrasound-guided left thoracentesis. Electronically Signed: Bridger Thorpe MD at 16:54 EDT Tel , Service support , Thoracentesis Ultrasound 12/13/20 12:37 IMPRESSION: Successful ultrasound-guided right thoracentesis. Electronically Signed: Bridger Thorpe MD at 16:18 EDT Tel , Service support , Chest X-Ray 12/13/20 15:45 IMPRESSION: No evidence of pneumothorax status post right thoracentesis, residual right pleural fluid is seen. Reaccumulation of the left pleural fluid is seen in comparison to the prior study. Electronically Signed: Bridger Thorpe MD at 16:12 EDT Tel , Service support , D/C Instructions Discharge Diet: No restrictions Meaningful Use Info Meaningful Use Diagnoses (Choose all that apply): None applicable Discharge Plan Admission Admit Date/Time: 12/11/20 18:22 Primary Reason for Your Visit: Hypoxia/Massive bilateral pleural effusion/asci tete Attending Provider: Adilene Bueno Primary Care Provider: Raza Glaser Consulting Providers: Ish Ross Instructions Additional Instructions / Restrictions: Discharge Orders/Prescriptions Prescriptions: Continued nystatin 100,000 unit/mL suspension 5 ml PO 4X/DAY RF: 0 sennosides-docusate sodium [P-COL RITE] 8.6-50 mg tablet 2 tab PO DAILY RF: 0 Eliquis DVT-PE Treat 30D Start 5 mg (74 tabs) tablets,dose pack 10 mg PO BID RF: 0 hydrocodone-acetaminophen 5-325 mg tablet 1 tab PO Q8H PRN PRN (Reason: Pain) RF: 0 Referrals / Follow Up: Ish Ross MD [STAFF PHYSICIAN] - Within 1 Month Raza Glaser MD [Primary Care Provider] - Within 1 Week Disposition Disposition (needs filled in before D/C Order can be placed): Home, Self Care Charges/Coding Visit Charges Inpatient E&M: 21922 Disch Hosp
[2020-12-13] MEDS: Potassium Chloride Oral Tablet 20 MEQ 40 MEQ PO (16:49)
[2020-12-17 16:25] LABS: Pathologist Comment/Body Fluid Reviewed
[2020-12-19 16:18] LABS: Glucose, Body Fluid 145 mg/dL (40-70)
== END 2020-12-13 17:15 | disposition home or self-care (01) | DRG 530 ==
LOC: ED 17:30 → PCU 19:05
PROVIDERS: Internal Medicine Critical Care Medicine; Nurse Practitioner Family; Admitting Provider Internal Medicine; Emergency Provider Emergency Medicine; PCP Family Medicine; Visit Provider Internal Medicine
DX: C53.9 Malignant neoplasm of cervix uteri, unspecified (principal); J98.11 Atelectasis; E43 Unspecified severe protein-calorie malnutrition; I26.09 Other pulmonary embolism with acute cor pulmonale; I82.402 Acute embolism and thrombosis of unspecified deep veins of left lower extremity; J91.0 Malignant pleural effusion; Z79.02 Long term (current) use of antithrombotics/antiplatelets; C79.9 Secondary malignant neoplasm of unspecified site; Z68.1 Body mass index [BMI] 19.9 or less, adult; R09.02 Hypoxemia; R06.89 Other abnormalities of breathing; R18.0 Malignant ascites
CPT/HCPCS: 32555; 36415; 49083; 71046; 71275; 80048; 80053; 82945; 83615; 83880; 84156; 84157; 84484; 85025; 85610; 85730; 87070; 87075; 87205; 87426; 88108; 88305; 88313; 88341; 88342; 89050; 97802; 99251; 99284; J7030; P9047; Q9967; A4216; G0463; J1940

== ENCOUNTER → 2020-12-19 12:55 | Outpatient (CLI) | payer MEDICAID, SELFPAY ==
--- NOTE | 2020-12-19 13:10 | RAD_ITS ---
STUDY: X-RAY CHEST REASON FOR EXAM: Female, 55 years old. Pleural effusions. TECHNIQUE: AP and lateral views of the chest. COMPARISON: Comparison is made with prior study dated 12/13/2020. FINDINGS: Small bilateral pleural effusions with bibasilar atelectasis and/or infiltrates worse on the left side. The previously seen left basilar infiltrate has improved. Normal size heart. Normal mediastinum and althea. Normal visualized pulmonary arteries. Normal visualized aortic arch and descending thoracic aorta. Normal visualized thoracic spine. Normal visualized ribs, clavicles, and shoulders. There is no demonstrated abnormality of the visualized soft tissue structures of the upper abdomen. RAD/Chest PA and Lateral IMPRESSION: Small bilateral pleural effusions with bibasilar atelectasis and/or infiltrates worse on the left side. The previously seen left basilar infiltrate has improved. Electronically Signed: Tony Wray MD at 13:51 EDT , Service support ,
== END ==
PROVIDERS: PCP Family Medicine; Referring Provider Family Medicine; Visit Provider Family Medicine
DX: C80.1 Malignant (primary) neoplasm, unspecified (principal); J91.0 Malignant pleural effusion; R06.02 Shortness of breath
CPT/HCPCS: 71046

== ENCOUNTER → 2020-12-24 12:27 | Outpatient (CLI) | payer MEDICAID, SELFPAY ==
--- NOTE | 2020-12-06 09:38 | NURSING ---
talked with [facility] nurse to get a report on current lab work and there is none, asked for a white count and platelets last drawn 10/13
--- NOTE | 2020-12-24 12:29 | US_ITS ---
PROCEDURE: Ultrasound guided paracentesis. DATE OF EXAMINATION: 12/24/2020. INDICATION: Female, 55 years old. Ascites. PHYSICIAN: Tony Wray M.D. TECHNIQUE: The risks, benefits, and alternatives to the procedure were explained to the patient. The specific risks of bleeding, infection, and damage to bowel were detailed and accepted. Witnessed informed consent was obtained. The abdomen was ultrasonographically surveyed. An appropriate pocket of fluid was identified at the right lower quadrant. The skin were cleaned and prepped in the usual sterile fashion. Using ultrasound guidance, the peritoneal cavity was accessed with a 5-[place] paracentesis needle/catheter system. The trocar was removed. A total of 2000 ml of josh-colored fluid were removed from the peritoneal cavity. The catheter was removed and a sterile dressing was applied. The procedure was well tolerated. US/Paracentesis with US IMPRESSION: Ultrasound guided paracentesis. Electronically Signed: Tony Wray MD at 13:49 EDT , Service support ,
[2020-12-24 12:50] VITALS: BP 112/78; BP 98/52; PULSE 102; PULSE 105; RESP 16; O2SAT 97; O2SAT 98
[2020-12-24] MEDS: Lidocaine 2% (20 ml mdv) 20 ML Vial 10 ML INFILT (13:00)
== END ==
PROVIDERS: PCP Family Medicine; Referring Provider Family Medicine; Visit Provider Family Medicine
DX: R18.0 Malignant ascites (principal); C76.3 Malignant neoplasm of pelvis
CPT/HCPCS: 49083